=== PATIENT | male | born 1960 | race African-American/Black ===

== ENCOUNTER 2016-12-07 18:56 | Inpatient (IN) | payer MEDICARE, OTHER ==
[~2016-12-07] VITALS: Ht 180.3 cm; Wt 101.2 kg
[~2016-12-07 18:56] MED LIST: CIPROFLOXACIN500 M2 ORAL; IBUPROFEN600 MG ORAL; METRONIDAZOLE500 MG ORAL; RISPERDAL2 MG ORAL; WELLBUTRIN XL150 M1 ORAL
[2016-12-07 19:30] VITALS: BP 122/78
[2016-12-07] MEDS ORDERED: Aspirin Baby 81mg ORAL ONE (19:45)
[2016-12-07 20:42] LABS: BASOPHILS % (AUTO) 1.5 % (0.0-2.0); EOSINOPHILS % (AUTO) 1.5 % (0.0-3.0); LYMPHOCYTES % (AUTO) 32.6 % (20.0-45.0); MEAN CORPUSCULAR HEMOGLOBIN 29.3 PG (27.0-31.0); MEAN CORPUSCULAR HGB CONC 30.6 G/DL (32.0-36.0); MEAN CORPUSCULAR VOLUME 96 FL (80-99); MEAN PLATELET VOLUME 8.7 FL (6.5-10.1); MONOCYTES % (AUTO) 7.5 % (1.0-10.0); NEUTROPHILS % (AUTO) 56.9 % (45.0-75.0); PLATELET COUNT 136 K/UL (150-450); RED BLOOD COUNT 4.14 M/UL (4.70-6.10); RED CELL DISTRIBUTION WIDTH 17.2 % (11.6-14.8); WHITE BLOOD COUNT 7.4 K/UL (4.8-10.8)
[2016-12-07 20:49] LABS: INR 0.9 (0.9-1.1); PROTHROMBIN TIME 9.9 SEC (9.30-11.50)
[2016-12-07 20:52] LABS: ALANINE AMINOTRANSFERASE 75 U/L (12-78); ALBUMIN/GLOBULIN RATIO 0.8 (1.0-2.7); ANION GAP 14 mmol/L (5-15); ASPARTATE AMINO TRANSFERASE 131 U/L (15-37); CALCIUM 9.1 MG/DL (8.5-10.1); CARBON DIOXIDE 21 MMOL/L (21-32); CHLORIDE 106 MMOL/L (98-107); CKMB 1.9 NG/ML (0.0-3.6); CREATININE 1.1 MG/DL (0.55-1.30); GLOMERULAR FILTRATION RATE > 60 mL/min (>60); POTASSIUM 3.9 MMOL/L (3.5-5.1); SODIUM 140 MMOL/L (136-145); THYROID STIMULATING HORMONE 0.575 uiU/mL (0.360-3.740); TOTAL PROTEIN 7.5 G/DL (6.4-8.2)
[2016-12-07 21:49] LABS: APPEARANCE,URINE CLEAR; KETONES,URINE NEGATIVE (NEGATIVE); LEUKOCYTE ESTERASE ,URINE NEGATIVE (NEGATIVE); NITRITE,URINE NEGATIVE (NEGATIVE); PH,URINE 5 (4.5-8.0); PROTEIN,URINE NEGATIVE (NEGATIVE); UROBILINOGEN,URINE NORMAL MG/DL (0.0-1.0)
[2016-12-07 22:22] VITALS: BP 124/71
--- NOTE | 2016-12-07 23:01 | Emergency Room Report ---
History of Present Illness General Chief Complaint: Chest Pain Source: EMS Present Illness HPI This patient is brought in by EMS from the street. EMS responded to a call for chest pain and shortness of breath. He was found to be an SVT. He converted with adenosine. He arrives in normal sinus rhythm. He is intoxicated. He does arouse to sternal rub but that he gets very angry and belligerent and doesn 't want to be bothered. He mostly wants to sleep. Allergies: Coded Allergies: No Known Allergies (Unverified , 09/17/14) Patient History Past Medical History: see triage record, DM, HTN, CAD, other - SVT Past Surgical History: other - knee surgery Social History: Reports: alcohol use Reviewed Nursing Documentation: PMH: Agreed, PSxH: Agreed Nursing Documentation-PMH Hx Cardiac Problems: Yes - SVT Hx Hypertension: No Hx Diabetes: Yes Hx Neurological Problems: No - Lt knee surgery in 1989 Review of Systems All Other Systems: negative except mentioned in HPI Physical Exam Vital Signs Date Time Temp Pulse Resp B/P (MAP) Pulse Ox O2 Delivery O2 Flow Rate FiO2 12/07/ 18:54 99.1 98 16 122/78 99 Room Air Sp02 EP Interpretation: reviewed, normal General Appearance: no apparent distress, GCS 15, non-toxic, Stupor - but arousable to sternal rub Head: normocephalic, atraumatic Eyes: bilateral eye normal inspection, bilateral eye PERRL ENT: hearing grossly normal, normal pharynx, no angioedema, normal voice Neck: full range of motion, supple/symm/no masses Respiratory: chest non-tender, lungs clear, normal breath sounds, speaking full sentences Cardiovascular #1: regular rate, rhythm, no edema Gastrointestinal: normal bowel sounds, non tender, soft, non-distended, no guarding, no rebound Rectal: deferred Musculoskeletal: back normal, normal range of motion, non-tender Neurologic: responsive, motor strength/tone normal, other - non-focal. intoxicated. Skin: normal color, no rash, warm/dry, well hydrated Medical Decision Making Diagnostic Impression: Primary Impression: Chest pain Additional Impressions: SVT (supraventricular tachycardia) Alcohol intoxication ER Course This patient presents with overall intoxication and chest pain. He initially was found in SVT according to EMS. He arrives already converted and in sinus rhythm. The patient is intoxicated and belligerent. He is nonfocal on neurologic exam however. Laboratory workup is noncontributory. EKG shows nonspecific ST segment findings. This patient will be admitted to telemetry for further her deck monitoring and evaluation. Laboratory Tests Test 12/07/16 19:55 12/07/16 21:23 White Blood Count 7.4 K/UL (4.8-10.8) Red Blood Count 4.14 M/UL (4.70-6.10) L Hemoglobin 12.1 G/DL (14.2-18.0) L Hematocrit 39.6 % (42.0-52.0) L Mean Corpuscular Volume 96 FL (80-99) Mean Corpuscular Hemoglobin 29.3 PG (27.0-31.0) Mean Corpuscular Hemoglobin Concent 30.6 G/DL (32.0-36.0) L Red Cell Distribution Width 17.2 % (11.6-14.8) H Platelet Count 136 K/UL (150-450) L Mean Platelet Volume 8.7 FL (6.5-10.1) Neutrophils (%) (Auto) 56.9 % (45.0-75.0) Lymphocytes (%) (Auto) 32.6 % (20.0-45.0) Monocytes (%) (Auto) 7.5 % (1.0-10.0) Eosinophils (%) (Auto) 1.5 % (0.0-3.0) Basophils (%) (Auto) 1.5 % (0.0-2.0) Prothrombin Time 9.9 SEC (9.30-11.50) Prothrombin Time INR 0.9 (0.9-1.1) PTT 25 SEC (23-33) Sodium Level 140 MMOL/L (136-145) Potassium Level 3.9 MMOL/L (3.5-5.1) Chloride Level 106 MMOL/L (98-107) Carbon Dioxide Level 21 MMOL/L (21-32) Anion Gap 14 mmol/L (5-15) Blood Urea Nitrogen 10 mg/dL (7-18) Creatinine 1.1 MG/DL (0.55-1.30) Estimate Glomerular Filtration Rate > 60 mL/min (>60) Glucose Level 97 MG/DL (74-106) Calcium Level 9.1 MG/DL (8.5-10.1) Total Bilirubin 0.5 MG/DL (0.2-1.0) Aspartate Amino Transferase (AST) 131 U/L (15-37) H Alanine Aminotransferase (ALT) 75 U/L (12-78) Alkaline Phosphatase 76 U/L (46-116) Total Creatine Kinase 285 U/L (26-308) Creatine Kinase MB 1.9 NG/ML (0.0-3.6) Creatine Kinase MB Relative Index 0.6 Troponin I 0.035 ng/mL (0.000-0.056) Total Protein 7.5 G/DL (6.4-8.2) Albumin 3.4 G/DL (3.4-5.0) Globulin 4.1 g/dL Albumin/Globulin Ratio 0.8 (1.0-2.7) L Thyroid Stimulating Hormone (TSH) 0.575 uiU/mL (0.360-3.740) Free Thyroxine 0.74 NG/DL (0.10-1.46) Free Triiodothyronine Pending Serum Alcohol 227 mg/dL Urine Color Pale yellow Urine Appearance Clear Urine pH 5 (4.5-8.0) Urine Specific [place] 1.020 (1.005-1.035) Urine Protein Negative (NEGATIVE) Urine Glucose (UA) Negative (NEGATIVE) Urine Ketones Negative (NEGATIVE) Urine Occult Blood Negative (NEGATIVE) Urine Nitrite Negative (NEGATIVE) Urine Bilirubin Negative (NEGATIVE) Urine Urobilinogen Normal MG/DL (0.0-1.0) Urine Leukocyte Esterase Negative (NEGATIVE) Urine Opiates Screen Negative (NEGATIVE) Urine Barbiturates Screen Negative (NEGATIVE) Phencyclidine (PCP) Screen Negative (NEGATIVE) Urine Amphetamines Screen Negative (NEGATIVE) Urine Benzodiazepines Screen Positive (NEGATIVE) H Urine Cocaine Screen Positive (NEGATIVE) H Urine Marijuana (THC) Screen Negative (NEGATIVE) EKG Diagnostic Results Rate: normal Rhythm: NSR ST Segments: other Other Impression NSST Rhythm Strip Diag. Results EP Interpretation: yes Rate: 90's Rhythm: NSR, no PVC's, no ectopy Chest X-Ray Diagnostic Results Chest X-Ray Diagnostic Results : Chest X-Ray Ordered: Yes # of Views/Limited/Complete: 1 View Indication: Chest Pain EP Interpretation: Yes Interpretation: no consolidation, no effusion, no pneumothorax, no acute cardiopulmonary disease Impression: No acute disease Electronically Signed by: Bertha Last Vital Signs Date Time Temp Pulse Resp B/P (MAP) Pulse Ox O2 Delivery O2 Flow Rate FiO2 12/07/16 22:22 99.1 78 11 124/71 96 Room Air Disposition: ADMITTED INPATIENT Condition: Stable Referrals: NOT CHOSEN JASWANT/,REFERRING (PCP) CHUNG NOGUEIRA D.O. Dec 07, 2016 23:01
[2016-12-07 23:22] VITALS: BP 123/73
[2016-12-07] MEDS ORDERED: UNOBMED (23:23)
[2016-12-07] MEDS ORDERED: Morphine Sulfate 2mg/ml Inj IVP PRN (23:30)
[2016-12-07] MEDS ORDERED: Mylanta II UD 30ml ORAL PRN (23:30)
[2016-12-07] MEDS ORDERED: Miralax 17gm pkt ORAL PRN (23:30)
[2016-12-07] MEDS ORDERED: chlordiazePOXIDE 25mg Cap ORAL PRN (23:30)
[2016-12-07] MEDS ORDERED: Thiamine HCl 100 MG, Folic Acid 1 MG, Magnesium Sulfate 2,000 MG, Multivitamin - 12 Inj... IV SCH ×5 (23:30)
[2016-12-07] MEDS ORDERED: dilTIAZem HCl 25mg/5ml Inj IV PRN (23:30)
[2016-12-07] MEDS ORDERED: Zolpidem 5mg tab ORAL PRN (23:30)
[2016-12-07] MEDS ORDERED: LORazepam Inj 2mg/ml 1ml IV PRN (23:30)
[2016-12-08] VITALS (8 sets, daily range): BP systolic 121–148; BP diastolic 62–94
[2016-12-08] MEDS ORDERED: Thiamine HCl 100 MG, Folic Acid 1 MG, Magnesium Sulfate 2,000 MG, Multivitamin - 12 Inj... IV SCH ×5 (09:00)
[2016-12-08] MEDS: Folic Acid 1 MG, Magnesium Sulfate 2,000 MG, Multivitamin - 12 Injection 10 ML in NS w/... IV SCH (10:11)
[2016-12-08] MEDS: Thiamine 100mg in D5W 55ml IVPB SCH (10:12)
[2016-12-08] MEDS: Heparin 5000 units/ml inj SUBQ SCH ×2 (10:24→20:10)
[2016-12-08 10:46] LABS: EOSINOPHILS % (AUTO) 1.9 % (0.0-3.0); LYMPHOCYTES % (AUTO) 20.4 % (20.0-45.0); MEAN CORPUSCULAR HEMOGLOBIN 29.9 PG (27.0-31.0); MEAN CORPUSCULAR HGB CONC 31.7 G/DL (32.0-36.0); MEAN CORPUSCULAR VOLUME 95 FL (80-99); MEAN PLATELET VOLUME 8.3 FL (6.5-10.1); MONOCYTES % (AUTO) 7.6 % (1.0-10.0); NEUTROPHILS % (AUTO) 69.2 % (45.0-75.0); PLATELET COUNT 146 K/UL (150-450); WHITE BLOOD COUNT 7.5 K/UL (4.8-10.8)
[2016-12-08 10:52] LABS: INR 0.9 (0.9-1.1); PROTHROMBIN TIME 9.7 SEC (9.30-11.50)
[2016-12-08 11:09] LABS: IRON 85 ug/dL (50-175)
[2016-12-08 11:11] LABS: ALANINE AMINOTRANSFERASE 72 U/L (12-78); ALBUMIN/GLOBULIN RATIO 0.8 (1.0-2.7); ANION GAP 10 mmol/L (5-15); ASPARTATE AMINO TRANSFERASE 79 U/L (15-37); CALCIUM 9.1 MG/DL (8.5-10.1); CARBON DIOXIDE 23 MMOL/L (21-32); CHLORIDE 106 MMOL/L (98-107); GLOMERULAR FILTRATION RATE > 60 mL/min (>60); POTASSIUM 4.1 MMOL/L (3.5-5.1); SODIUM 139 MMOL/L (136-145); TOTAL PROTEIN 7.4 G/DL (6.4-8.2)
[2016-12-08 11:32] LABS: ANISOCYTOSIS 1+; BAND NEUTROPHILS % (MANUAL) 0 % (0-8); BASOPHILS % (MANUAL) 0 % (0-2); EOSINOPHILS % (MANUAL) 2 % (0-3); HYPOCHROMASIA 1+; LYMPHOCYTES % (MANUAL) 17 % (20-45); NEUTROPHILS % (MANUAL) 77 % (45-75); PLATELET ESTIMATE DECREASED; PLATELET MORPHOLOGY NORMAL; TOTAL CELLS COUNTED 100
[2016-12-08 11:58] LABS: FOLIC ACID 9.8 NG/ML (3.1-17.5)
[2016-12-08 12:00] LABS: TOTAL IRON BINDING CAPACITY 190 ug/dL (250-450)
[2016-12-08 12:01] LABS: LACTATE DEHYDROGENASE 328 U/L (81-234)
[2016-12-08 12:05] LABS: ERYTHROCYTE SEDIMENTATION RATE 22 MM/HR (0-20)
[2016-12-08 12:20] LABS: RETICULOCYTE COUNT 1.7 % (0.0-2.0)
[2016-12-08 12:32] LABS: PATH BLOOD SMEAR/OMC SENT TO PATHOLOGIST
--- NOTE | 2016-12-08 12:43 | Diagnostic Imaging Report ---
Indication: Chest pain Comparison: None A single view chest radiograph was obtained. Findings: Cardiomediastinal appearance is within normal limits for age. Pulmonary vascularity is appropriate. The diaphragmatic contour is smooth and costophrenic angles are sharp. No pleural effusions are identified. The bones are unremarkable. Impression: No acute findings
--- NOTE | 2016-12-08 12:52 | History and Physical ---
History of Present Illness General Date patient seen: Dec 08, 2016 Reason for Hospitalization: Chest Pain Present Illness HPI 56 year old male with hx of DM, HTN, CAD brought in by EMS from the street for chest pain and shortness of breath. He was found to be an SVT. He converted with adenosine. He arrives in normal sinus rhythm. He was intoxicated. He is admitted to telemetry for acute episode of SVT and acute encephalopathy,. Allergies: Coded Allergies: No Known Allergies (Unverified , 09/17/14) Medication History Scheduled Bupropion HCl (Wellbutrin Xl), 150 MG ORAL DAILY, (Reported) Ciprofloxacin Hcl* (Ciprofloxacin Hcl*), 500 MG ORAL Q12H Metronidazole* (Flagyl*), 500 MG ORAL THREE TIMES A DAY Risperidone* (Risperdal*), 2 MG ORAL DAILY, (Reported) Scheduled PRN Ibuprofen* (Motrin*), 600 MG ORAL Q8H PRN for For Pain Ibuprofen* (Motrin*), 600 MG ORAL Q8H PRN for For Pain Miscellaneous Medications Unable to Obtain Medications (Unable To Obtain Meds), (Reported) Patient History Healthcare decision maker Resuscitation status Full Code Advanced Directive on File Past Medical/Surgical History Past Medical/Surgical History: (1) Diabetes mellitus (2) HTN (hypertension) (3) ETOH abuse Review of Systems All Other Systems: negative except mentioned in HPI Physical Exam General Appearance: WD/WN Lines, tubes and drains: peripheral HEENT: normocephalic, atraumatic Neck: non-tender, normal alignment Respiratory/Chest: chest wall non-tender, lungs clear Breasts: no masses Cardiovascular/Chest: normal peripheral pulses Abdomen: normal bowel sounds, soft Genitourinary/Rectal: normal genital exam Last 24 Hour Vital Signs Date Time Temp Pulse Resp B/P (MAP) Pulse Ox O2 Delivery O2 Flow Rate FiO2 12/08/16 11:48 97.5 68 18 134/62 97 Room Air 12/08/16 08:00 97.3 69 20 122/75 98 Room Air 12/08/16 08:00 104 12/08/16 04:00 76 12/08/16 04:00 97.0 82 20 130/85 97 Room Air 12/08/16 01:00 97.6 92 20 125/80 98 Room Air 12/08/16 00:20 99.1 68 11 121/75 97 Room Air 75 12/08/16 00:13 99.1 75 11 121/75 97 Room Air 12/08/16 00:00 98.1 68 23 148/94 98 12/07/16 23:22 99.1 79 11 123/73 96 Room Air 12/07/16 22:22 99.1 78 11 124/71 96 Room Air 12/07/16 19:30 90 16 Room Air 12/07/16 19:30 99.1 90 16 122/78 95 Room Air 12/07/16 18:54 99.1 98 16 122/78 99 Room Air Intake and Output 12/08/16 12/09/16 19:00 07:00 Intake Total 120 ml Balance 120 ml Intake Oral 120 ml Laboratory Tests Test 12/07/16 19:55 12/07/16 21:23 12/08/16 10:05 White Blood Count 7.4 K/UL (4.8-10.8) 7.5 K/UL (4.8-10.8) Red Blood Count 4.14 M/UL (4.70-6.10) L 4.20 M/UL (4.70-6.10) L Hemoglobin 12.1 G/DL (14.2-18.0) L 12.6 G/DL (14.2-18.0) L Hematocrit 39.6 % (42.0-52.0) L 39.7 % (42.0-52.0) L Mean Corpuscular Volume 96 FL (80-99) 95 FL (80-99) Mean Corpuscular Hemoglobin 29.3 PG (27.0-31.0) 29.9 PG (27.0-31.0) Mean Corpuscular Hemoglobin Concent 30.6 G/DL (32.0-36.0) L 31.7 G/DL (32.0-36.0) L Red Cell Distribution Width 17.2 % (11.6-14.8) H 17.0 % (11.6-14.8) H Platelet Count 136 K/UL (150-450) L 146 K/UL (150-450) L Mean Platelet Volume 8.7 FL (6.5-10.1) 8.3 FL (6.5-10.1) Neutrophils (%) (Auto) 56.9 % (45.0-75.0) 69.2 % (45.0-75.0) Lymphocytes (%) (Auto) 32.6 % (20.0-45.0) 20.4 % (20.0-45.0) Monocytes (%) (Auto) 7.5 % (1.0-10.0) 7.6 % (1.0-10.0) Eosinophils (%) (Auto) 1.5 % (0.0-3.0) 1.9 % (0.0-3.0) Basophils (%) (Auto) 1.5 % (0.0-2.0) 1.0 % (0.0-2.0) Prothrombin Time 9.9 SEC (9.30-11.50) 9.7 SEC (9.30-11.50) Prothromb Time International Ratio 0.9 (0.9-1.1) 0.9 (0.9-1.1) Activated Partial Thromboplast Time 25 SEC (23-33) 26 SEC (23-33) Sodium Level 140 MMOL/L (136-145) 139 MMOL/L (136-145) Potassium Level 3.9 MMOL/L (3.5-5.1) 4.1 MMOL/L (3.5-5.1) Chloride Level 106 MMOL/L (98-107) 106 MMOL/L (98-107) Carbon Dioxide Level 21 MMOL/L (21-32) 23 MMOL/L (21-32) Anion Gap 14 mmol/L (5-15) 10 mmol/L (5-15) Blood Urea Nitrogen 10 mg/dL (7-18) 10 mg/dL (7-18) Creatinine 1.1 MG/DL (0.55-1.30) 1.0 MG/DL (0.55-1.30) Estimat Glomerular Filtration Rate > 60 mL/min (>60) > 60 mL/min (>60) Glucose Level 97 MG/DL (74-106) 95 MG/DL (74-106) Calcium Level 9.1 MG/DL (8.5-10.1) 9.1 MG/DL (8.5-10.1) Total Bilirubin 0.5 MG/DL (0.2-1.0) 1.0 MG/DL (0.2-1.0) Aspartate Amino Transf (AST/SGOT) 131 U/L (15-37) H 79 U/L (15-37) H Alanine Aminotransferase (ALT/SGPT) 75 U/L (12-78) 72 U/L (12-78) Alkaline Phosphatase 76 U/L (46-116) 79 U/L (46-116) Total Creatine Kinase 285 U/L (26-308) Creatine Kinase MB 1.9 NG/ML (0.0-3.6) Creatine Kinase MB Relative Index 0.6 Troponin I 0.035 ng/mL (0.000-0.056) Total Protein 7.5 G/DL (6.4-8.2) 7.4 G/DL (6.4-8.2) Albumin 3.4 G/DL (3.4-5.0) 3.3 G/DL (3.4-5.0) L Globulin 4.1 g/dL 4.1 g/dL Albumin/Globulin Ratio 0.8 (1.0-2.7) L 0.8 (1.0-2.7) L Thyroid Stimulating Hormone (TSH) 0.575 uiU/mL (0.360-3.740) Free Thyroxine 0.74 NG/DL (0.10-1.46) Free Triiodothyronine Pending Serum Alcohol 227 mg/dL Urine Color Pale yellow Urine Appearance Clear Urine pH 5 (4.5-8.0) Urine Specific [place] 1.020 (1.005-1.035) Urine Protein Negative (NEGATIVE) Urine Glucose (UA) Negative (NEGATIVE) Urine Ketones Negative (NEGATIVE) Urine Occult Blood Negative (NEGATIVE) Urine Nitrite Negative (NEGATIVE) Urine Bilirubin Negative (NEGATIVE) Urine Urobilinogen Normal MG/DL (0.0-1.0) Urine Leukocyte Esterase Negative (NEGATIVE) Urine Opiates Screen Negative (NEGATIVE) Urine Barbiturates Screen Negative (NEGATIVE) Phencyclidine (PCP) Screen Negative (NEGATIVE) Urine Amphetamines Screen Negative (NEGATIVE) Urine Benzodiazepines Screen Positive (NEGATIVE) H Urine Cocaine Screen Positive (NEGATIVE) H Urine Marijuana (THC) Screen Negative (NEGATIVE) Differential Total Cells Counted 100 Neutrophils % (Manual) 77 % (45-75) H Lymphocytes % (Manual) 17 % (20-45) L Monocytes % (Manual) 4 % (1-10) Eosinophils % (Manual) 2 % (0-3) Basophils % (Manual) 0 % (0-2) Band Neutrophils 0 % (0-8) Platelet Estimate Decreased L Platelet Morphology Normal Hypochromasia 1+ Anisocytosis 1+ Erythrocyte Sedimentation Rate 22 MM/HR (0-20) H Reticulocyte Count 1.7 % (0.0-2.0) Iron Level 85 ug/dL (50-175) Total Iron Binding Capacity 190 ug/dL (250-450) L Percent Iron Saturation 45 % (15-50) Unsaturated Iron Binding 105 ug/dL (112-346) L Lactate Dehydrogenase 328 U/L (81-234) H Vitamin B12 Level 629 PG/ML (193-986) Folate 9.8 NG/ML (3.1-17.5) Height (Feet): 5 Height (Inches): 11.00 Weight (Pounds): 223 Medications Current Medications Medications (Trade) Dose Ordered Sig/Liliya Route PRN Reason Start Time Stop Time Status Last Admin Dose Admin Acetaminophen (Tylenol) 650 mg Q4H PRN ORAL fever 12/07/16 23:30 01/06/17 23:29 Al Hydroxide/Mg Hydroxide (Mylanta II) 30 ml Q6H PRN ORAL dyspepsia 12/07/16 23:30 01/06/17 23:29 Chlordiazepoxide (Librium) 25 mg Q6H PRN ORAL Agitation 12/07/16 23:30 12/14/16 23:29 Dextrose (Dextrose 50%) STAT PRN IV Hypoglycemia 12/07/16 23:30 01/06/17 23:29 Diltiazem HCl (Cardizem) 10 mg EVERY HOUR PRN IV heart rate more than 120, 12/07/16 23:30 01/06/17 23:29 Folic Acid 1 mg/ Magnesium Sulfate 2000 mg/ Multivitamins 10 ml/Sodium Chloride 1,014.2 ml @ 125 mls/ hr Q24H IV 12/08/16 08:00 01/07/17 07:59 12/08/16 10:11 Heparin Sodium (Porcine) (Heparin 5000 units/ml) 5,000 units EVERY 12 HOURS SUBQ 12/08/16 09:00 01/07/17 08:59 12/08/16 10:24 Lorazepam (Ativan 2mg/ml 1ml) 2 mg EVERY HOUR PRN IV seizures 12/07/16 23:30 12/14/16 23:29 Morphine Sulfate (Morphine Sulfate) 1 mg EVERY 4 HOURS PRN IVP For Pain 12/07/16 23:30 12/14/16 23:29 Ondansetron HCl (Zofran) 4 mg Q6H PRN IVP Nausea & Vomiting 12/07/16 23:30 01/06/17 23:29 Polyethylene Glycol (Miralax) 17 gm HSPRN PRN ORAL Constipation 12/07/16 23:30 01/06/17 23:29 Thiamine HCl 100 mg/Dextrose 56 ml @ 112 mls/hr Q24H IVPB 12/08/16 08:00 01/07/17 07:59 12/08/16 10:12 Zolpidem Tartrate (Ambien) 5 mg HSPRN PRN ORAL Insomnia 12/07/16 23:30 12/14/16 23:29 Assessment/Plan Problem List: (1) SVT (supraventricular tachycardia) ICD Codes: I47.1 - Supraventricular tachycardia SNOMED: 0492698 (2) Chest pain ICD Codes: R07.9 - Chest pain, unspecified SNOMED: 42848360 (3) Delirium ICD Codes: R41.0 - Disorientation, unspecified SNOMED: 0608725 (4) Diabetes mellitus ICD Codes: E11.9 - Type 2 diabetes mellitus without complications SNOMED: 45231119 (5) HTN (hypertension) ICD Codes: I10 - Essential (primary) hypertension SNOMED: 54201651 (6) ETOH abuse ICD Codes: F10.10 - Alcohol abuse, uncomplicated SNOMED: 52884889 Assessment/Plan librium ativan prn Banan bag cardio to see telemetry BHASKAR ALONZO Dec 08, 2016 12:52
[2016-12-08] MEDS: LORazepam Inj 2mg/ml 1ml IV PRN ×2 (13:04→20:11)
[2016-12-08] MEDS: chlordiazePOXIDE 25mg Cap ORAL SCH ×2 (13:15→17:17)
--- NOTE | 2016-12-08 15:09 | Neurology Progress Note ---
Objective Physical Exam Last Vital Signs Date Time Temp Pulse Resp B/P (MAP) Pulse Ox O2 Delivery O2 Flow Rate FiO2 12/08/16 11:48 97.5 68 18 134/62 97 Room Air Laboratory Tests Test 12/07/16 19:55 12/07/16 21:23 12/08/16 10:05 White Blood Count 7.4 K/UL (4.8-10.8) 7.5 K/UL (4.8-10.8) Red Blood Count 4.14 M/UL (4.70-6.10) L 4.20 M/UL (4.70-6.10) L Hemoglobin 12.1 G/DL (14.2-18.0) L 12.6 G/DL (14.2-18.0) L Hematocrit 39.6 % (42.0-52.0) L 39.7 % (42.0-52.0) L Mean Corpuscular Volume 96 FL (80-99) 95 FL (80-99) Mean Corpuscular Hemoglobin 29.3 PG (27.0-31.0) 29.9 PG (27.0-31.0) Mean Corpuscular Hemoglobin Concent 30.6 G/DL (32.0-36.0) L 31.7 G/DL (32.0-36.0) L Red Cell Distribution Width 17.2 % (11.6-14.8) H 17.0 % (11.6-14.8) H Platelet Count 136 K/UL (150-450) L 146 K/UL (150-450) L Mean Platelet Volume 8.7 FL (6.5-10.1) 8.3 FL (6.5-10.1) Neutrophils (%) (Auto) 56.9 % (45.0-75.0) 69.2 % (45.0-75.0) Lymphocytes (%) (Auto) 32.6 % (20.0-45.0) 20.4 % (20.0-45.0) Monocytes (%) (Auto) 7.5 % (1.0-10.0) 7.6 % (1.0-10.0) Eosinophils (%) (Auto) 1.5 % (0.0-3.0) 1.9 % (0.0-3.0) Basophils (%) (Auto) 1.5 % (0.0-2.0) 1.0 % (0.0-2.0) Prothrombin Time 9.9 SEC (9.30-11.50) 9.7 SEC (9.30-11.50) Prothromb Time International Ratio 0.9 (0.9-1.1) 0.9 (0.9-1.1) Activated Partial Thromboplast Time 25 SEC (23-33) 26 SEC (23-33) Sodium Level 140 MMOL/L (136-145) 139 MMOL/L (136-145) Potassium Level 3.9 MMOL/L (3.5-5.1) 4.1 MMOL/L (3.5-5.1) Chloride Level 106 MMOL/L (98-107) 106 MMOL/L (98-107) Carbon Dioxide Level 21 MMOL/L (21-32) 23 MMOL/L (21-32) Anion Gap 14 mmol/L (5-15) 10 mmol/L (5-15) Blood Urea Nitrogen 10 mg/dL (7-18) 10 mg/dL (7-18) Creatinine 1.1 MG/DL (0.55-1.30) 1.0 MG/DL (0.55-1.30) Estimat Glomerular Filtration Rate > 60 mL/min (>60) > 60 mL/min (>60) Glucose Level 97 MG/DL (74-106) 95 MG/DL (74-106) Calcium Level 9.1 MG/DL (8.5-10.1) 9.1 MG/DL (8.5-10.1) Total Bilirubin 0.5 MG/DL (0.2-1.0) 1.0 MG/DL (0.2-1.0) Aspartate Amino Transf (AST/SGOT) 131 U/L (15-37) H 79 U/L (15-37) H Alanine Aminotransferase (ALT/SGPT) 75 U/L (12-78) 72 U/L (12-78) Alkaline Phosphatase 76 U/L (46-116) 79 U/L (46-116) Total Creatine Kinase 285 U/L (26-308) Creatine Kinase MB 1.9 NG/ML (0.0-3.6) Creatine Kinase MB Relative Index 0.6 Troponin I 0.035 ng/mL (0.000-0.056) Total Protein 7.5 G/DL (6.4-8.2) 7.4 G/DL (6.4-8.2) Albumin 3.4 G/DL (3.4-5.0) 3.3 G/DL (3.4-5.0) L Globulin 4.1 g/dL 4.1 g/dL Albumin/Globulin Ratio 0.8 (1.0-2.7) L 0.8 (1.0-2.7) L Thyroid Stimulating Hormone (TSH) 0.575 uiU/mL (0.360-3.740) Free Thyroxine 0.74 NG/DL (0.10-1.46) Free Triiodothyronine Pending Serum Alcohol 227 mg/dL Urine Color Pale yellow Urine Appearance Clear Urine pH 5 (4.5-8.0) Urine Specific [place] 1.020 (1.005-1.035) Urine Protein Negative (NEGATIVE) Urine Glucose (UA) Negative (NEGATIVE) Urine Ketones Negative (NEGATIVE) Urine Occult Blood Negative (NEGATIVE) Urine Nitrite Negative (NEGATIVE) Urine Bilirubin Negative (NEGATIVE) Urine Urobilinogen Normal MG/DL (0.0-1.0) Urine Leukocyte Esterase Negative (NEGATIVE) Urine Opiates Screen Negative (NEGATIVE) Urine Barbiturates Screen Negative (NEGATIVE) Phencyclidine (PCP) Screen Negative (NEGATIVE) Urine Amphetamines Screen Negative (NEGATIVE) Urine Benzodiazepines Screen Positive (NEGATIVE) H Urine Cocaine Screen Positive (NEGATIVE) H Urine Marijuana (THC) Screen Negative (NEGATIVE) Differential Total Cells Counted 100 Neutrophils % (Manual) 77 % (45-75) H Lymphocytes % (Manual) 17 % (20-45) L Monocytes % (Manual) 4 % (1-10) Eosinophils % (Manual) 2 % (0-3) Basophils % (Manual) 0 % (0-2) Band Neutrophils 0 % (0-8) Platelet Estimate Decreased L Platelet Morphology Normal Hypochromasia 1+ Anisocytosis 1+ Erythrocyte Sedimentation Rate 22 MM/HR (0-20) H Reticulocyte Count 1.7 % (0.0-2.0) Iron Level 85 ug/dL (50-175) Total Iron Binding Capacity 190 ug/dL (250-450) L Percent Iron Saturation 45 % (15-50) Unsaturated Iron Binding 105 ug/dL (112-346) L Lactate Dehydrogenase 328 U/L (81-234) H Vitamin B12 Level 629 PG/ML (193-986) Folate 9.8 NG/ML (3.1-17.5) Impression/Recommendations Recommendations # [id number] NUNU HAYES Dec 08, 2016 15:09
--- NOTE | 2016-12-08 16:16 | Cardiology Progress Note ---
Assessment/Plan Assessment/Plan svt chest wall pain recetn hospilization at [facility] left ama extensive neuro evl at [facility] 10/2016 [id number] Objective Last 24 Hour Vital Signs Date Time Temp Pulse Resp B/P (MAP) Pulse Ox O2 Delivery O2 Flow Rate FiO2 12/08/16 15:36 97.7 69 20 130/74 99 Room Air 12/08/16 12:00 76 12/08/16 11:48 97.5 68 18 134/62 97 Room Air 12/08/16 08:00 97.3 69 20 122/75 98 Room Air 12/08/16 08:00 104 12/08/16 04:00 76 12/08/16 04:00 97.0 82 20 130/85 97 Room Air 12/08/16 01:00 97.6 92 20 125/80 98 Room Air 12/08/16 00:20 99.1 68 11 121/75 97 Room Air 75 12/08/16 00:13 99.1 75 11 121/75 97 Room Air 12/08/16 00:00 98.1 68 23 148/94 98 12/07/16 23:22 99.1 79 11 123/73 96 Room Air 12/07/16 22:22 99.1 78 11 124/71 96 Room Air 12/07/16 19:30 90 16 Room Air 12/07/16 19:30 99.1 90 16 122/78 95 Room Air 12/07/16 18:54 99.1 98 16 122/78 99 Room Air Intake and Output 12/08/16 12/09/16 19:00 07:00 Intake Total 240 ml Balance 240 ml Intake Oral 240 ml Laboratory Tests Test 12/07/16 19:55 12/07/16 21:23 12/08/16 10:05 White Blood Count 7.4 K/UL (4.8-10.8) 7.5 K/UL (4.8-10.8) Red Blood Count 4.14 M/UL (4.70-6.10) L 4.20 M/UL (4.70-6.10) L Hemoglobin 12.1 G/DL (14.2-18.0) L 12.6 G/DL (14.2-18.0) L Hematocrit 39.6 % (42.0-52.0) L 39.7 % (42.0-52.0) L Mean Corpuscular Volume 96 FL (80-99) 95 FL (80-99) Mean Corpuscular Hemoglobin 29.3 PG (27.0-31.0) 29.9 PG (27.0-31.0) Mean Corpuscular Hemoglobin Concent 30.6 G/DL (32.0-36.0) L 31.7 G/DL (32.0-36.0) L Red Cell Distribution Width 17.2 % (11.6-14.8) H 17.0 % (11.6-14.8) H Platelet Count 136 K/UL (150-450) L 146 K/UL (150-450) L Mean Platelet Volume 8.7 FL (6.5-10.1) 8.3 FL (6.5-10.1) Neutrophils (%) (Auto) 56.9 % (45.0-75.0) 69.2 % (45.0-75.0) Lymphocytes (%) (Auto) 32.6 % (20.0-45.0) 20.4 % (20.0-45.0) Monocytes (%) (Auto) 7.5 % (1.0-10.0) 7.6 % (1.0-10.0) Eosinophils (%) (Auto) 1.5 % (0.0-3.0) 1.9 % (0.0-3.0) Basophils (%) (Auto) 1.5 % (0.0-2.0) 1.0 % (0.0-2.0) Prothrombin Time 9.9 SEC (9.30-11.50) 9.7 SEC (9.30-11.50) Prothromb Time International Ratio 0.9 (0.9-1.1) 0.9 (0.9-1.1) Activated Partial Thromboplast Time 25 SEC (23-33) 26 SEC (23-33) Sodium Level 140 MMOL/L (136-145) 139 MMOL/L (136-145) Potassium Level 3.9 MMOL/L (3.5-5.1) 4.1 MMOL/L (3.5-5.1) Chloride Level 106 MMOL/L (98-107) 106 MMOL/L (98-107) Carbon Dioxide Level 21 MMOL/L (21-32) 23 MMOL/L (21-32) Anion Gap 14 mmol/L (5-15) 10 mmol/L (5-15) Blood Urea Nitrogen 10 mg/dL (7-18) 10 mg/dL (7-18) Creatinine 1.1 MG/DL (0.55-1.30) 1.0 MG/DL (0.55-1.30) Estimat Glomerular Filtration Rate > 60 mL/min (>60) > 60 mL/min (>60) Glucose Level 97 MG/DL (74-106) 95 MG/DL (74-106) Calcium Level 9.1 MG/DL (8.5-10.1) 9.1 MG/DL (8.5-10.1) Total Bilirubin 0.5 MG/DL (0.2-1.0) 1.0 MG/DL (0.2-1.0) Aspartate Amino Transf (AST/SGOT) 131 U/L (15-37) H 79 U/L (15-37) H Alanine Aminotransferase (ALT/SGPT) 75 U/L (12-78) 72 U/L (12-78) Alkaline Phosphatase 76 U/L (46-116) 79 U/L (46-116) Total Creatine Kinase 285 U/L (26-308) Creatine Kinase MB 1.9 NG/ML (0.0-3.6) Creatine Kinase MB Relative Index 0.6 Troponin I 0.035 ng/mL (0.000-0.056) Total Protein 7.5 G/DL (6.4-8.2) 7.4 G/DL (6.4-8.2) Albumin 3.4 G/DL (3.4-5.0) 3.3 G/DL (3.4-5.0) L Globulin 4.1 g/dL 4.1 g/dL Albumin/Globulin Ratio 0.8 (1.0-2.7) L 0.8 (1.0-2.7) L Thyroid Stimulating Hormone (TSH) 0.575 uiU/mL (0.360-3.740) Free Thyroxine 0.74 NG/DL (0.10-1.46) Free Triiodothyronine Pending Serum Alcohol 227 mg/dL Urine Color Pale yellow Urine Appearance Clear Urine pH 5 (4.5-8.0) Urine Specific [place] 1.020 (1.005-1.035) Urine Protein Negative (NEGATIVE) Urine Glucose (UA) Negative (NEGATIVE) Urine Ketones Negative (NEGATIVE) Urine Occult Blood Negative (NEGATIVE) Urine Nitrite Negative (NEGATIVE) Urine Bilirubin Negative (NEGATIVE) Urine Urobilinogen Normal MG/DL (0.0-1.0) Urine Leukocyte Esterase Negative (NEGATIVE) Urine Opiates Screen Negative (NEGATIVE) Urine Barbiturates Screen Negative (NEGATIVE) Phencyclidine (PCP) Screen Negative (NEGATIVE) Urine Amphetamines Screen Negative (NEGATIVE) Urine Benzodiazepines Screen Positive (NEGATIVE) H Urine Cocaine Screen Positive (NEGATIVE) H Urine Marijuana (THC) Screen Negative (NEGATIVE) Differential Total Cells Counted 100 Neutrophils % (Manual) 77 % (45-75) H Lymphocytes % (Manual) 17 % (20-45) L Monocytes % (Manual) 4 % (1-10) Eosinophils % (Manual) 2 % (0-3) Basophils % (Manual) 0 % (0-2) Band Neutrophils 0 % (0-8) Platelet Estimate Decreased L Platelet Morphology Normal Hypochromasia 1+ Anisocytosis 1+ Erythrocyte Sedimentation Rate 22 MM/HR (0-20) H Reticulocyte Count 1.7 % (0.0-2.0) Iron Level 85 ug/dL (50-175) Total Iron Binding Capacity 190 ug/dL (250-450) L Percent Iron Saturation 45 % (15-50) Unsaturated Iron Binding 105 ug/dL (112-346) L Lactate Dehydrogenase 328 U/L (81-234) H Vitamin B12 Level 629 PG/ML (193-986) Folate 9.8 NG/ML (3.1-17.5) RICKY AGUIRRE Dec 08, 2016 16:16
[2016-12-08] MEDS: Metoprolol Tartrate 12.5mg TAB ORAL SCH ×2 (17:16→23:00)
[2016-12-08 18:17] LABS: PSA TOTAL 0.9 ng/mL (0.0-4.0)
--- NOTE | 2016-12-08 20:45 | Cardiology Report ---
APPROVED REPORT EXAM: Two-dimensional and M-mode echocardiogram with Doppler and color Doppler. INDICATION Left ventricular function M-Mode DIMENSIONS IVSd0.7 (0.7-1.1cm)Left Atrium (MM)2.4 (1.6-4.0cm) LVDd4.9 (3.5-5.6cm)Aortic Root2.8 (2.0-3.7cm) PWd0.9 (0.7-1.1cm)Aortic Cusp Exc.2.0 (1.5-2.0cm) LVDs2.5 (2.5-4.0cm) PWs1.4 cm Technically difficult study due to poor acoustical windows. Normal left ventricular chamber size, systolic function and wall motion. Left ventricular ejection fraction estimated to be 65-70%. No evidence of left ventricular hypertrophy. No evidence of pericardial or pleural effusion. All other cardiac chamber sizes are within normal limits. Focal aortic valve sclerosis with adequate cusp excursion. Thickened mitral valve leaflets with normal excursion. Normal mitral annulus and aortic. Pulmonic valve not well visualized. Normal tricuspid valve structure. IVC is not obtainable. A color flow and spectral Doppler study was performed and revealed: No aortic regurgitation. No mitral regurgitation. Mitral diastolic velocities suggest reduced left ventricular relaxation c/w diastolic dysfunction grade 1. No tricuspid regurgitation.
--- NOTE | 2016-12-08 22:45 | Consultation ---
DATE OF CONSULTATION: 12/08/2016 NEUROLOGICAL CONSULTATION CONSULTING PHYSICIAN: Jordan Brewer M.D. REQUESTING PHYSICIAN: Erika Chu M.D. HISTORY OF PRESENT ILLNESS: This is a 56-year-old man, seen in neurological consultation to evaluate new changes in mental status. According to the patient, he is a heavy drinker, drinks more than two fifths of hard liquors daily. He stopped and his last drink was yesterday after he started to develop chest pain and shortness of breath. Paramedics were called to the scene. He was found to be in supraventricular tachycardia. This apparently was converted with the use of adenosine. The patient was brought to the emergency room being quite intoxicated, angry, belligerent, and drowsy. His vital signs were stable except temperature 99.1. His chest x-ray, no acute findings. His laboratory work included CBC study with hemoglobin 12.1, hematocrit 39.2, and platelets 136,000. Coagulation panel was normal. Urinalysis was normal. Toxicology panel positive for benzos and cocaine, and serum alcohol of 227. His chemistry panel initially was normal with an elevated AST of 131, repeat study with LVH of 328, and albumin 3.3. Since admission till present, he continued to have chest pain and tremors. SOCIAL HISTORY: The patient recently become homeless. MEDICATIONS: Treatment at home included Wellbutrin 150 mg daily, Cipro, ibuprofen, Flagyl, and Risperdal 2 mg daily. ALLERGIES: None reported. REVIEW OF SYMPTOMS: Chest pain, depression, generalized weakness, and tremulousness. Now, the patient informs that he had previous alcohol withdrawal episodes some of them accompanied by seizure activities. He has a history of depression. PHYSICAL EXAMINATION: GENERAL: A well-developed, well-nourished man, found to be asleep, but easily arousable. VITAL SIGNS: Stable. He was afebrile. Blood pressure 134/62 and heart rate of 68. HEENT: Head, normocephalic. No evidence of injuries. Eyes, ears, and throat are clear. NECK: Supple. No meningeal signs. MUSCULOSKELETAL: Unremarkable. There is no deformities. Peripheral pulses 1+ and symmetric. MENTAL STATUS: The patient is now alert and oriented x3. Speech is fluent. No evidence of aphasia or apraxia. He is depressed indicating that he does not want to live like this. CRANIAL NERVE II: Pupils both responding to light and accommodation. Extraocular movements, full range. CRANIAL NERVE V: Normal corneal responses. CRANIAL NERVE VII: No facial asymmetry. CRANIAL NERVE VIII: Normal hearing. CRANIAL NERVES IX THROUGH XII: Tongue is in the midline. Symmetric palate elevation. MOTOR EXAMINATION: Revealed action tremor of both upper extremities. Strength is 5/5. Deep tendon reflexes 1+ and symmetric. Plantar response is mute. SENSORY EXAMINATION: Normal to pin stimulation. Gait not tested, but reported able to ambulate. IMPRESSION: 1. Alcohol abuse, delirium tremens. 2. History of withdrawal seizure activity. 3. Severe depression and suicidal ideation. 4. Abnormal liver enzymes. RECOMMENDATIONS: 1. The patient will start on alcohol withdrawal protocol. We will get IV banana bag. Ativan 2 mg q.4 hours p.r.n. breakthrough agitation, start on Valium 5 mg q.6 hours, and thiamine 200 mg b.i.d. x2 days. 2. Observe for any paroxysmal events. Recheck liver function, ammonia level, and PSA. 3. We will follow with you. Thank you for allowing me to see this interesting patient in neurological consultation. Jordan Brewer M.D. DR: ZULAY JOB#: [id number] CC:
[2016-12-09] MEDS: chlordiazePOXIDE 25mg Cap ORAL SCH ×2 (00:10→06:19)
--- NOTE | 2016-12-09 00:15 | Consultation ---
DATE OF CONSULTATION: 12/08/2016 CARDIOLOGY CONSULTATION CONSULTING PHYSICIAN: Walt Mccauley M.D. REFERRING PHYSICIAN: Erika Chu M.D. ATTENDING PHYSICIAN: Erika Chu M.D. REASON FOR REFERRAL: Chest pain and supraventricular tachycardia. HISTORY OF PRESENT ILLNESS: This is a 56-year-old gentleman, who recently been hospitalized and discharged from [facility]. The patient presented to the hospital because of chest pains and palpitations. Apparently, he has had these palpitations on several occasions. He had been told to have a procedure performed but he has never got it, he states. Yesterday there was a recurrent episode. He got diaphoretic, sweaty, nauseated and vomited, eventually called the paramedics. SVT was documented by paramedics, treated en route to the emergency room. He has been complaining of chest pain that he describes as nail sensation left side of the chest, it constantly present for at least one month, does get worse when he lays down on the left side and/or moves his left arm. He has occasional shortness of breath waking him up at night and breathes and it goes away. He has occasional shortness of breath. He has occasional dizziness or lightheadedness . PAST MEDICAL HISTORY: Positive for diabetes and possibly high blood pressure. He has had [facility] records which I reviewed, chest wall pain and midsternal pain reproducible on palpation. Alcohol abuse. Gait impairment that was felt not be a true symptom. History of hypertension, homelessness, prediabetes, somatic distended gallbladder, elevated lactic acid. During last hospitalization from [facility] in January, the patient left against medical advice. Report the patient was malingering gait impairment according to those records. He was seen and evaluated by neurology. CT MRI without evidence of CVA. He did get a banana bag at [facility], but left on his own. He did have a CT angiogram of his chest and basically no evidence of aortic aneurysm, aortic dissection, small hiatal hernia, distended gallbladder, small abdominal wall hernia, diverticulosis without diverticulitis, normal appendix, metallic fragments in soft tissue and gluteal area. SOCIAL HISTORY: The patient does not smoke. Does drink alcoholic beverages as much as he can get his hands on and uses drugs any kind that he get his hands on so what he had indicated. REVIEW OF SYSTEMS: GASTROINTESTINAL: He has had nausea vomiting yesterday during the episode. GENITOURINARY: Denies. PULMONARY: Denies CONSTITUTIONAL: Denies. NEUROLOGICAL: As mentioned in the history of present illness. PHYSICAL EXAMINATION: GENERAL: Shows to be middle-aged gentleman, in no respiratory distress. HEENT: He kept his eyes closed but was talking throughout the entire interview. NECK: Supple. No jugular venous distention. LUNGS: Clear to auscultation and percussion. CARDIAC: Regular rate and rhythm. No heaves or thrills noted. Chest wall is tender to palpation and seems to reproduce the patient's chest pain. ABDOMEN: Soft and nontender. Positive bowel sounds. EXTREMITIES: No clubbing, cyanosis, nor is there any edema. NEUROLOGICAL: He is awake, alert, responsive, and in no respiratory distress. LABORATORY AND DIAGNOSTIC DATA: His white count is 7.5, hemoglobin 12.6, and platelet count of 146. Sodium is 139, potassium 4.1, chloride 106, bicarb 23, BUN of 10, creatinine 1.0, glucose of 95. Troponin is 0.035. TSH was 0.575. Free T4 of 0.74. LDH of 329. Vitamin B12 of 612. Folic acid 9.8. Coags, INR 0.9 and PTT of 26. Tox screen positive for benzos and cocaine. Alcohol of 227. His urinalysis was unremarkable. Telemetry data shows sinus rhythm. There is no significant ST-T on telemetry here. EKG shows normal sinus rhythm, normal QRS and axis, no ST-T wave abnormalities. EKG by paramedics indicate supraventricular tachycardia, rate of 166 that broke with treatment administered by the paramedics, not clear to me whether he actually received adenosine are not. Actually the emergency room physician indicates that the patient was actually given adenosine by the paramedics for which he did respond ASSESSMENT AND PLAN: 1. Chest wall syndrome. 2. Supraventricular tachycardia with history of the same. 3. Alcohol abuse history. 4. Drug abuse history. 5. History of hospitalization recently at [facility], leaving against medical advice. 6. Complaints of gait disorder, not confirmed objectively and leaving against medical advice. Dr. Chu, this patient was seen in cardiac consultation. Should have a set of cardiac enzymes today and I will start him on some metoprolol 12.5 mg twice daily for him to take on a regular basis to see if we can prevent these episodes of SVT from occurring. He indicates he has had some intermittently. He has apparently been offered ablation. I am assuming he has not gone through with those procedures. Nonetheless apparently he is followed somewhere although not on a regular basis. Hopefully the atenolol will help decrease the frequency of these episodes. He is already is aware of what he can do to break these episodes including cold water application on the face, those to be continued if needed. The patient has had extensive neurological evaluation at [facility] and I see the patient has been evaluated by Dr. Brewer here as well. Walt Mccauley M.D. DR: Neema JOB#: [id number] CC:
[2016-12-09 00:21] VITALS: BP 114/73
[2016-12-09 04:00] VITALS: BP 118/69
[2016-12-09] MEDS: LORazepam Inj 2mg/ml 1ml IV PRN (06:26)
[2016-12-09 08:11] VITALS: BP 126/87
[2016-12-09 08:20] LABS: BASOPHILS % (AUTO) 0.7 % (0.0-2.0); EOSINOPHILS % (AUTO) 2.9 % (0.0-3.0); LYMPHOCYTES % (AUTO) 20.7 % (20.0-45.0); MEAN CORPUSCULAR HEMOGLOBIN 30.6 PG (27.0-31.0); MEAN CORPUSCULAR HGB CONC 32.2 G/DL (32.0-36.0); MEAN CORPUSCULAR VOLUME 95 FL (80-99); MEAN PLATELET VOLUME 10.1 FL (6.5-10.1); MONOCYTES % (AUTO) 7.8 % (1.0-10.0); NEUTROPHILS % (AUTO) 67.9 % (45.0-75.0); PLATELET COUNT 152 K/UL (150-450); RED CELL DISTRIBUTION WIDTH 17.5 % (11.6-14.8); WHITE BLOOD COUNT 7.1 K/UL (4.8-10.8)
[2016-12-09 08:51] LABS: ALANINE AMINOTRANSFERASE 60 U/L (12-78); ALBUMIN/GLOBULIN RATIO 0.7 (1.0-2.7); ANION GAP 8 mmol/L (5-15); ASPARTATE AMINO TRANSFERASE 52 U/L (15-37); CALCIUM 8.7 MG/DL (8.5-10.1); CARBON DIOXIDE 24 MMOL/L (21-32); CHLORIDE 107 MMOL/L (98-107); CREATININE 1.1 MG/DL (0.55-1.30); GLOMERULAR FILTRATION RATE > 60 mL/min (>60); PHOSPHORUS 3.4 MG/DL (2.5-4.9); POTASSIUM 3.8 MMOL/L (3.5-5.1); SODIUM 139 MMOL/L (136-145); TOTAL PROTEIN 7.1 G/DL (6.4-8.2)
[2016-12-09 08:53] LABS: CRP QUANT < 0.4 mg/dL (0.00-0.90)
[2016-12-09] MEDS: Thiamine 100mg in D5W 55ml IVPB SCH (09:53)
[2016-12-09] MEDS: Metoprolol Tartrate 12.5mg TAB ORAL SCH ×2 (09:54→20:57)
[2016-12-09] MEDS: Folic Acid 1 MG, Magnesium Sulfate 2,000 MG, Multivitamin - 12 Injection 10 ML in NS w/... IV SCH (09:54)
[2016-12-09] MEDS: Heparin 5000 units/ml inj SUBQ SCH ×2 (09:56→20:59)
[2016-12-09 09:58] LABS: ERYTHROCYTE SEDIMENTATION RATE 30 MM/HR (0-20)
[2016-12-09 12:03] VITALS: BP 140/86
--- NOTE | 2016-12-09 12:15 | Neurology Progress Note ---
Interim History Interim History ROS Limited/Unobtainable: No Complaints: visual hallucination Events: tremors insomnia Objective Physical Exam Last Vital Signs Date Time Temp Pulse Resp B/P (MAP) Pulse Ox O2 Delivery O2 Flow Rate FiO2 12/09/16 12:03 97.7 68 18 140/86 96 Room Air Laboratory Tests Test 12/08/16 17:00 12/08/16 19:05 12/09/16 07:20 Ammonia 34 umol/L (11.2-31.7) H Troponin I 0.015 ng/mL (0.000-0.056) Prostate Specific Antigen 0.9 ng/mL (0.0-4.0) Stool Occult Blood Negative (NEGATIVE) White Blood Count 7.1 K/UL (4.8-10.8) Red Blood Count 4.20 M/UL (4.70-6.10) L Hemoglobin 12.9 G/DL (14.2-18.0) L Hematocrit 39.9 % (42.0-52.0) L Mean Corpuscular Volume 95 FL (80-99) Mean Corpuscular Hemoglobin 30.6 PG (27.0-31.0) Mean Corpuscular Hemoglobin Concent 32.2 G/DL (32.0-36.0) Red Cell Distribution Width 17.5 % (11.6-14.8) H Platelet Count 152 K/UL (150-450) Mean Platelet Volume 10.1 FL (6.5-10.1) Neutrophils (%) (Auto) 67.9 % (45.0-75.0) Lymphocytes (%) (Auto) 20.7 % (20.0-45.0) Monocytes (%) (Auto) 7.8 % (1.0-10.0) Eosinophils (%) (Auto) 2.9 % (0.0-3.0) Basophils (%) (Auto) 0.7 % (0.0-2.0) Erythrocyte Sedimentation Rate 30 MM/HR (0-20) H Sodium Level 139 MMOL/L (136-145) Potassium Level 3.8 MMOL/L (3.5-5.1) Chloride Level 107 MMOL/L (98-107) Carbon Dioxide Level 24 MMOL/L (21-32) Anion Gap 8 mmol/L (5-15) Blood Urea Nitrogen 12 mg/dL (7-18) Creatinine 1.1 MG/DL (0.55-1.30) Estimat Glomerular Filtration Rate > 60 mL/min (>60) Glucose Level 104 MG/DL (74-106) Calcium Level 8.7 MG/DL (8.5-10.1) Phosphorus Level 3.4 MG/DL (2.5-4.9) Magnesium Level 2.0 MG/DL (1.8-2.4) Total Bilirubin 0.9 MG/DL (0.2-1.0) Aspartate Amino Transf (AST/SGOT) 52 U/L (15-37) H Alanine Aminotransferase (ALT/SGPT) 60 U/L (12-78) Alkaline Phosphatase 72 U/L (46-116) C-Reactive Protein, Quantitative < 0.4 mg/dL (0.00-0.90) Total Protein 7.1 G/DL (6.4-8.2) Albumin 3.0 G/DL (3.4-5.0) L Globulin 4.1 g/dL Albumin/Globulin Ratio 0.7 (1.0-2.7) L General: well developed, well nourished, other - ill appearing Head: normocophalic, atraumatic Neck: no rigidity Neurologic Exam Mental Status: other - drowsy arousable depressed Speech: normal speech, no dysarthia Language: normal language, no aphasia Cranial Nerve II: no papilledema Cranial Nerves III, IV, : PERRLA, EOMI Cranial Nerve V: normal facial sensations Cranial Nerve VII: no facial asymmetry Cranial Nerve VIII: normal hearing Cranial Nerve IX: normal palate elevation Cranial Nerve X: no voice hoarseness Cranial Nerve XI: trapezii function normal Cranial Nerve XII: tongue midline Motor System: no muscle wasting, other - tremors Sensory: normal pinprick Coordination: other Deep Tendon Reflexes: 0 bicep (L), 0 bicep (R), 0 tricep (L), 0 tricep (R), 0 brachioradialis (L), 0 brachioradialis (R), 0 knee (L), 0 knee (R), 0 ankle (L) , 0 ankle (R) Reflexes: mute plantar (L), mute plantar (R) Impression/Recommendations Problems: (1) Substance abuse withdrawal (2) Delirium tremens (3) Diabetes mellitus (4) Alcohol intoxication (5) SVT (supraventricular tachycardia) Status: unchanged Recommendations # [id number] NUNU HAYES Dec 09, 2016 12:15
--- NOTE | 2016-12-09 14:35 | Pulmonology Progress Note ---
Assessment/Plan Problems: (1) Delirium tremens (2) SVT (supraventricular tachycardia) (3) Chest pain (4) Delirium (5) Diabetes mellitus (6) HTN (hypertension) (7) ETOH abuse Assessment/Plan valium prn cardio following donna beta blockers/ Subjective ROS Limited/Unobtainable: No Constitutional: Reports: no symptoms HEENT: Repors: no symptoms Allergies: Coded Allergies: No Known Allergies (Unverified , 09/17/14) Objective Last 24 Hour Vital Signs Date Time Temp Pulse Resp B/P (MAP) Pulse Ox O2 Delivery O2 Flow Rate FiO2 12/09/16 12:03 97.7 68 18 140/86 96 Room Air 12/09/16 12:00 93 12/09/16 09:54 82 126/87 12/09/16 08:11 97.2 82 20 126/87 96 Room Air 12/09/16 08:00 92 12/09/16 04:00 97.8 75 19 118/69 97 Room Air 12/09/16 04:00 67 12/09/16 00:21 97.9 77 20 114/73 97 Room Air 12/09/16 00:00 82 12/08/16 23:00 77 114/73 12/08/16 20:27 97.6 81 19 132/71 96 Room Air 12/08/16 20:00 76 12/08/16 17:16 93 130/74 12/08/16 16:00 93 12/08/16 15:36 97.7 69 20 130/74 99 Room Air Intake and Output 12/09/16 12/10/16 19:00 07:00 Intake Total 480 ml Output Total 650 ml Balance -170 ml Intake Oral 480 ml Output Urine Total 650 ml General Appearance: WD/WN HEENT: normocephalic, atraumatic Respiratory/Chest: chest wall non-tender, lungs clear Cardiovascular: normal peripheral pulses, normal rate Abdomen: normal bowel sounds, soft, non tender Genitourinary: normal external genitalia Extremities: no cyanosis Skin: no lesions 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 Laboratory Tests 12/08/16 17:00: Ammonia 34H, Troponin I 0.015, Prostate Specific Antigen 0.9 12/08/16 19:05: Stool Occult Blood Negative 12/09/16 07:20: White Blood Count 7.1, Red Blood Count 4.20L, Hemoglobin 12.9L, Hematocrit 39.9L , Mean Corpuscular Volume 95, Mean Corpuscular Hemoglobin 30.6, Mean Corpuscular Hemoglobin Concent 32.2, Red Cell Distribution Width 17.5H, Platelet Count 152, Mean Platelet Volume 10.1, Neutrophils (%) (Auto) 67.9, Lymphocytes (%) (Auto) 20.7, Monocytes (%) (Auto) 7.8, Eosinophils (%) (Auto) 2.9, Basophils (%) (Auto) 0.7, Erythrocyte Sedimentation Rate 30H, Sodium Level 139, Potassium Level 3.8, Chloride Level 107, Carbon Dioxide Level 24, Anion Gap 8, Blood Urea Nitrogen 12, Creatinine 1.1, Estimat Glomerular Filtration Rate > 60, Glucose Level 104, Calcium Level 8.7, Phosphorus Level 3.4, Magnesium Level 2.0, Total Bilirubin 0.9, Aspartate Amino Transf (AST/SGOT) 52H , Alanine Aminotransferase (ALT/SGPT) 60, Alkaline Phosphatase 72, C-Reactive Protein, Quantitative < 0.4, Total Protein 7.1, Albumin 3.0L, Globulin 4.1, Albumin/Globulin Ratio 0.7L Current Medications Medications (Trade) Dose Ordered Sig/Liliya Route PRN Reason Start Time Stop Time Status Last Admin Dose Admin Acetaminophen (Tylenol) 650 mg Q4H PRN ORAL fever 12/07/16 23:30 01/06/17 23:29 Al Hydroxide/Mg Hydroxide (Mylanta II) 30 ml Q6H PRN ORAL dyspepsia 12/07/16 23:30 01/06/17 23:29 Dextrose (Dextrose 50%) STAT PRN IV Hypoglycemia 12/07/16 23:30 01/06/17 23:29 Diazepam (Valium) 5 mg Q6HR ORAL 12/09/16 12:30 12/16/16 12:29 12/09/16 12:46 Diltiazem HCl (Cardizem) 10 mg EVERY HOUR PRN IV heart rate more than 120, 12/07/16 23:30 01/06/17 23:29 Folic Acid 1 mg/ Magnesium Sulfate 2000 mg/ Multivitamins 10 ml/Sodium Chloride 1,014.2 ml @ 125 mls/ hr Q24H IV 12/08/16 08:00 01/07/17 07:59 12/09/16 09:54 Heparin Sodium (Porcine) (Heparin 5000 units/ml) 5,000 units EVERY 12 HOURS SUBQ 12/08/16 09:00 01/07/17 08:59 12/09/16 09:56 Lorazepam (Ativan 2mg/ml 1ml) 1 mg Q1H PRN IV tremors 12/08/16 12:45 12/15/16 12:44 12/09/16 06:26 Metoprolol Tartrate (Lopressor) 12.5 mg Q12HR ORAL 12/08/16 17:00 01/07/17 16:59 12/09/16 09:54 Morphine Sulfate (Morphine Sulfate) 1 mg EVERY 4 HOURS PRN IVP For Pain 12/07/16 23:30 12/14/16 23:29 Ondansetron HCl (Zofran) 4 mg Q6H PRN IVP Nausea & Vomiting 12/07/16 23:30 01/06/17 23:29 Polyethylene Glycol (Miralax) 17 gm HSPRN PRN ORAL Constipation 12/07/16 23:30 01/06/17 23:29 Risperidone (RisperDAL) 0.25 mg Q6H ORAL 12/09/16 12:30 01/08/17 12:29 12/09/16 12:47 Thiamine HCl 100 mg/Dextrose 56 ml @ 112 mls/hr Q24H IVPB 12/08/16 08:00 01/07/17 07:59 12/09/16 09:53 Zolpidem Tartrate (Ambien) 5 mg HSPRN PRN ORAL Insomnia 12/07/16 23:30 12/14/16 23:29 BHASKAR ALONZO Dec 09, 2016 14:35
--- NOTE | 2016-12-09 15:49 | Cardiology Report ---
APPROVED REPORT EKG Measurement Heart [id number] ND [id number] Normal sinus rhythm Normal ECG
[2016-12-09 15:59] VITALS: BP 127/71
[2016-12-09 20:00] VITALS: BP 131/74
--- NOTE | 2016-12-09 23:33 | Consultation ---
History of Present Illness General Chief Complaint: Chest Pain Present Illness HPI 56-year-old man,he is a heavy drinker, drinks more than two fifths of hard liquors daily. He stopped and his last drink was yesterday after he started to develop chest pain and shortness of breath. Paramedics were called during the eval the pt was eating and was staring at TV he was confused and not engaged. he is endorsing anxiety Allergies: Coded Allergies: No Known Allergies (Unverified , 09/17/14) Medication History Scheduled Bupropion HCl (Wellbutrin Xl), 150 MG ORAL DAILY, (Reported) Ciprofloxacin Hcl* (Ciprofloxacin Hcl*), 500 MG ORAL Q12H Metronidazole* (Flagyl*), 500 MG ORAL THREE TIMES A DAY Risperidone* (Risperdal*), 2 MG ORAL DAILY, (Reported) Scheduled PRN Ibuprofen* (Motrin*), 600 MG ORAL Q8H PRN for For Pain Ibuprofen* (Motrin*), 600 MG ORAL Q8H PRN for For Pain Miscellaneous Medications Unable to Obtain Medications (Unable To Obtain Meds), (Reported) Patient History Limited by: medical condition History Provided By: Patient, Medical Record, PMD Healthcare decision maker Resuscitation status Full Code Advanced Directive on File Past Medical/Surgical History Past Medical/Surgical History: (1) Arthralgia (2) Foot pain, left (3) Diverticulitis (4) Diverticulitis (5) Alcohol intoxication (6) Chest pain (7) Diabetes mellitus (8) HTN (hypertension) (9) Delirium (10) SVT (supraventricular tachycardia) (11) Delirium tremens (12) Substance abuse withdrawal Review of Systems Constitutional: Reports: malaise, weakness Psychiatric: Reports: prior hx, anxiety, depressed feelings, emotional problems Physical Exam General Appearance: no apparent distress, alert, confused Neurologic: alert, disoriented, unresponsiveness, depressed affect Last 24 Hour Vital Signs Date Time Temp Pulse Resp B/P (MAP) Pulse Ox O2 Delivery O2 Flow Rate FiO2 12/09/16 20:57 75 131/74 12/09/16 20:00 72 12/09/16 20:00 98.0 84 20 131/74 96 Room Air 12/09/16 16:00 73 12/09/16 15:59 97.5 70 18 127/71 96 Room Air 12/09/16 12:03 97.7 68 18 140/86 96 Room Air 12/09/16 12:00 93 12/09/16 09:54 82 126/87 12/09/16 08:11 97.2 82 20 126/87 96 Room Air 12/09/16 08:00 92 12/09/16 04:00 97.8 75 19 118/69 97 Room Air 12/09/16 04:00 67 12/09/16 00:21 97.9 77 20 114/73 97 Room Air 12/09/16 00:00 82 Intake and Output 12/09/16 12/10/16 19:00 07:00 Intake Total 2296 ml 1014.2 ml Output Total 2576 ml Balance -280 ml 1014.2 ml Intake Oral 1196 ml IV Total 1014.2 ml Other 1100 ml Output Urine Total 2576 ml # Bowel Movements 2 Laboratory Tests Test 12/09/16 07:20 White Blood Count 7.1 K/UL (4.8-10.8) Red Blood Count 4.20 M/UL (4.70-6.10) L Hemoglobin 12.9 G/DL (14.2-18.0) L Hematocrit 39.9 % (42.0-52.0) L Mean Corpuscular Volume 95 FL (80-99) Mean Corpuscular Hemoglobin 30.6 PG (27.0-31.0) Mean Corpuscular Hemoglobin Concent 32.2 G/DL (32.0-36.0) Red Cell Distribution Width 17.5 % (11.6-14.8) H Platelet Count 152 K/UL (150-450) Mean Platelet Volume 10.1 FL (6.5-10.1) Neutrophils (%) (Auto) 67.9 % (45.0-75.0) Lymphocytes (%) (Auto) 20.7 % (20.0-45.0) Monocytes (%) (Auto) 7.8 % (1.0-10.0) Eosinophils (%) (Auto) 2.9 % (0.0-3.0) Basophils (%) (Auto) 0.7 % (0.0-2.0) Erythrocyte Sedimentation Rate 30 MM/HR (0-20) H Sodium Level 139 MMOL/L (136-145) Potassium Level 3.8 MMOL/L (3.5-5.1) Chloride Level 107 MMOL/L (98-107) Carbon Dioxide Level 24 MMOL/L (21-32) Anion Gap 8 mmol/L (5-15) Blood Urea Nitrogen 12 mg/dL (7-18) Creatinine 1.1 MG/DL (0.55-1.30) Estimat Glomerular Filtration Rate > 60 mL/min (>60) Glucose Level 104 MG/DL (74-106) Calcium Level 8.7 MG/DL (8.5-10.1) Phosphorus Level 3.4 MG/DL (2.5-4.9) Magnesium Level 2.0 MG/DL (1.8-2.4) Total Bilirubin 0.9 MG/DL (0.2-1.0) Aspartate Amino Transf (AST/SGOT) 52 U/L (15-37) H Alanine Aminotransferase (ALT/SGPT) 60 U/L (12-78) Alkaline Phosphatase 72 U/L (46-116) C-Reactive Protein, Quantitative < 0.4 mg/dL (0.00-0.90) Total Protein 7.1 G/DL (6.4-8.2) Albumin 3.0 G/DL (3.4-5.0) L Globulin 4.1 g/dL Albumin/Globulin Ratio 0.7 (1.0-2.7) L Height (Feet): 5 Height (Inches): 11.00 Weight (Pounds): 223 Medications Current Medications Medications (Trade) Dose Ordered Sig/Liliya Route PRN Reason Start Time Stop Time Status Last Admin Dose Admin Acetaminophen (Tylenol) 650 mg Q4H PRN ORAL Mild Pain/Temp > 100.5 12/09/16 22:00 01/08/17 21:59 Al Hydroxide/Mg Hydroxide (Mylanta II) 30 ml Q6H PRN ORAL dyspepsia 12/07/16 23:30 01/06/17 23:29 Dextrose (Dextrose 50%) STAT PRN IV Hypoglycemia 12/07/16 23:30 01/06/17 23:29 Diazepam (Valium) 5 mg Q6HR ORAL 12/09/16 12:30 12/16/16 12:29 12/09/16 17:24 Diltiazem HCl (Cardizem) 10 mg EVERY HOUR PRN IV heart rate more than 120, 12/07/16 23:30 01/06/17 23:29 Folic Acid 1 mg/ Magnesium Sulfate 2000 mg/ Multivitamins 10 ml/Sodium Chloride 1,014.2 ml @ 125 mls/ hr Q24H IV 12/08/16 08:00 01/07/17 07:59 12/09/16 09:54 Heparin Sodium (Porcine) (Heparin 5000 units/ml) 5,000 units EVERY 12 HOURS SUBQ 12/08/16 09:00 01/07/17 08:59 12/09/16 20:59 Lorazepam (Ativan 2mg/ml 1ml) 1 mg Q1H PRN IV tremors 12/08/16 12:45 12/15/16 12:44 12/09/16 06:26 Metoprolol Tartrate (Lopressor) 12.5 mg Q12HR ORAL 12/08/16 17:00 01/07/17 16:59 12/09/16 20:57 Morphine Sulfate (Morphine Sulfate) 1 mg EVERY 4 HOURS PRN IVP For Pain 12/07/16 23:30 12/14/16 23:29 Ondansetron HCl (Zofran) 4 mg Q6H PRN IVP Nausea & Vomiting 12/07/16 23:30 01/06/17 23:29 Polyethylene Glycol (Miralax) 17 gm HSPRN PRN ORAL Constipation 12/07/16 23:30 01/06/17 23:29 Risperidone (RisperDAL) 0.25 mg Q6H ORAL 12/09/16 12:30 01/08/17 12:29 12/09/16 12:47 Thiamine HCl 100 mg/Dextrose 56 ml @ 112 mls/hr Q24H IVPB 12/08/16 08:00 01/07/17 07:59 12/09/16 09:53 Zolpidem Tartrate (Ambien) 5 mg HSPRN PRN ORAL Insomnia 12/07/16 23:30 12/14/16 23:29 Assessment/Plan Status: stable Assessment/Plan alcohol dependence alcohol w/d depression increase valium dc ativan start Paige Esteban M.D. Dec 09, 2016 23:33
[2016-12-10 00:37] VITALS: BP 124/76
[2016-12-10 04:27] VITALS: BP 128/75
[2016-12-10 08:10] LABS: BASOPHILS % (AUTO) 0.9 % (0.0-2.0); EOSINOPHILS % (AUTO) 4.5 % (0.0-3.0); LYMPHOCYTES % (AUTO) 23.5 % (20.0-45.0); MEAN CORPUSCULAR HEMOGLOBIN 30.7 PG (27.0-31.0); MEAN CORPUSCULAR HGB CONC 32.1 G/DL (32.0-36.0); MEAN CORPUSCULAR VOLUME 96 FL (80-99); MEAN PLATELET VOLUME 8.9 FL (6.5-10.1); MONOCYTES % (AUTO) 8.9 % (1.0-10.0); NEUTROPHILS % (AUTO) 62.2 % (45.0-75.0); PLATELET COUNT 153 K/UL (150-450); RED BLOOD COUNT 3.98 M/UL (4.70-6.10); RED CELL DISTRIBUTION WIDTH 17.4 % (11.6-14.8); WHITE BLOOD COUNT 6.5 K/UL (4.8-10.8)
[2016-12-10] MEDS: Folic Acid 1 MG, Magnesium Sulfate 2,000 MG, Multivitamin - 12 Injection 10 ML in NS w/... IV SCH (08:11)
[2016-12-10 08:19] VITALS: BP 124/78
[2016-12-10 08:30] LABS: ALANINE AMINOTRANSFERASE 50 U/L (12-78); ALBUMIN/GLOBULIN RATIO 0.8 (1.0-2.7); ANION GAP 8 mmol/L (5-15); ASPARTATE AMINO TRANSFERASE 43 U/L (15-37); CALCIUM 8.8 MG/DL (8.5-10.1); CARBON DIOXIDE 24 MMOL/L (21-32); CHLORIDE 108 MMOL/L (98-107); GLOMERULAR FILTRATION RATE > 60 mL/min (>60); MAGNESIUM 1.9 MG/DL (1.8-2.4); PHOSPHORUS 3.3 MG/DL (2.5-4.9); POTASSIUM 3.7 MMOL/L (3.5-5.1); SODIUM 140 MMOL/L (136-145); TOTAL PROTEIN 6.5 G/DL (6.4-8.2)
[2016-12-10] MEDS: Metoprolol Tartrate 12.5mg TAB ORAL SCH (08:30)
[2016-12-10] MEDS: Heparin 5000 units/ml inj SUBQ SCH (08:31)
[2016-12-10] MEDS ORDERED: Thiamine 100mg in D5W 55ml IVPB SCH (09:00)
[2016-12-10 11:24] VITALS: BP 129/86
[2016-12-10 11:53] LABS: OTHERS PATHOLOGIST COMMENT
--- NOTE | 2016-12-10 15:56 | Pulmonology Progress Note ---
Assessment/Plan Problems: (1) Delirium tremens (2) SVT (supraventricular tachycardia) (3) Chest pain (4) Delirium (5) Diabetes mellitus (6) HTN (hypertension) (7) ETOH abuse Assessment/Plan valium prn cardio following donna beta blockers/ improving adamant about leaving the hospital Subjective ROS Limited/Unobtainable: No Interval Events: feeling better Allergies: Coded Allergies: No Known Allergies (Unverified , 09/17/14) Objective Last 24 Hour Vital Signs Date Time Temp Pulse Resp B/P (MAP) Pulse Ox O2 Delivery O2 Flow Rate FiO2 12/10/16 12:00 67 12/10/16 11:24 97.4 80 20 129/86 98 Room Air 12/10/16 08:30 79 124/78 12/10/16 08:19 98.4 79 20 124/78 98 Room Air 12/10/16 08:00 84 12/10/16 04:27 98.0 55 20 128/75 97 Room Air 12/10/16 04:00 66 12/10/16 00:37 98.0 60 20 124/76 94 Room Air 12/10/16 00:00 68 12/09/16 20:57 75 131/74 12/09/16 20:00 72 12/09/16 20:00 98.0 84 20 131/74 96 Room Air 12/09/16 16:00 73 12/09/16 15:59 97.5 70 18 127/71 96 Room Air Intake and Output 12/10/16 12/11/16 19:00 07:00 Intake Total 681 ml Balance 681 ml IV Total 681 ml # Voids 1 # Bowel Movements 1 General Appearance: WD/WN HEENT: normocephalic, anicteric Respiratory/Chest: chest wall non-tender, normal breath sounds, chest wall tender Cardiovascular: normal peripheral pulses, normal rate Abdomen: normal bowel sounds, soft, non tender Genitourinary: normal external genitalia Extremities: no clubbing Skin: no rash Microbiology Date/Time Source Procedure Growth Status 12/08/16 00:45 Nasal Nares Left MRSA Culture - Final NO METHICILLIN RESISTANT STAPH AUREUS... Complete 12/08/16 00:45 Rectum VRE Culture - Final NO VANCOMYCIN RESISTANT ENTEROCOCCUS ... Complete Laboratory Tests 12/10/16 06:50: White Blood Count 6.5, Red Blood Count 3.98L, Hemoglobin 12.2L, Hematocrit 38.0L , Mean Corpuscular Volume 96, Mean Corpuscular Hemoglobin 30.7, Mean Corpuscular Hemoglobin Concent 32.1, Red Cell Distribution Width 17.4H, Platelet Count 153, Mean Platelet Volume 8.9, Neutrophils (%) (Auto) 62.2, Lymphocytes (%) (Auto) 23.5, Monocytes (%) (Auto) 8.9, Eosinophils (%) (Auto) 4.5H, Basophils (%) (Auto) 0.9, Sodium Level 140, Potassium Level 3.7, Chloride Level 108H, Carbon Dioxide Level 24, Anion Gap 8, Blood Urea Nitrogen 8, Creatinine 1.0, Estimat Glomerular Filtration Rate > 60, Glucose Level 98, Calcium Level 8.8, Phosphorus Level 3.3, Magnesium Level 1.9, Total Bilirubin 0.6, Aspartate Amino Transf (AST/SGOT) 43H, Alanine Aminotransferase (ALT/SGPT) 50, Alkaline Phosphatase 65, Total Protein 6.5, Albumin 2.8L, Globulin 3.7, Albumin/Globulin Ratio 0.8L BHASKAR ALONZO Dec 10, 2016 15:56
--- NOTE | 2016-12-10 21:05 | General Progress Note ---
Assessment/Plan Status: stable, progressing Subjective Constitutional: Reports: malaise, weakness Neurologic/Psychiatric: Reports: depressed, emotional problems Allergies: Coded Allergies: No Known Allergies (Unverified , 09/17/14) Objective Last 24 Hour Vital Signs Date Time Temp Pulse Resp B/P (MAP) Pulse Ox O2 Delivery O2 Flow Rate FiO2 12/10/16 12:00 67 12/10/16 11:24 97.4 80 20 129/86 98 Room Air 12/10/16 08:30 79 124/78 12/10/16 08:19 98.4 79 20 124/78 98 Room Air 12/10/16 08:00 84 12/10/16 04:27 98.0 55 20 128/75 97 Room Air 12/10/16 04:00 66 12/10/16 00:37 98.0 60 20 124/76 94 Room Air 12/10/16 00:00 68 12/09/16 20:57 75 131/74 Intake and Output 12/10/16 12/11/16 19:00 07:00 Intake Total 681 ml Balance 681 ml IV Total 681 ml # Voids 1 # Bowel Movements 1 Laboratory Tests 12/10/16 06:50: White Blood Count 6.5, Red Blood Count 3.98L, Hemoglobin 12.2L, Hematocrit 38.0L , Mean Corpuscular Volume 96, Mean Corpuscular Hemoglobin 30.7, Mean Corpuscular Hemoglobin Concent 32.1, Red Cell Distribution Width 17.4H, Platelet Count 153, Mean Platelet Volume 8.9, Neutrophils (%) (Auto) 62.2, Lymphocytes (%) (Auto) 23.5, Monocytes (%) (Auto) 8.9, Eosinophils (%) (Auto) 4.5H, Basophils (%) (Auto) 0.9, Sodium Level 140, Potassium Level 3.7, Chloride Level 108H, Carbon Dioxide Level 24, Anion Gap 8, Blood Urea Nitrogen 8, Creatinine 1.0, Estimat Glomerular Filtration Rate > 60, Glucose Level 98, Calcium Level 8.8, Phosphorus Level 3.3, Magnesium Level 1.9, Total Bilirubin 0.6, Aspartate Amino Transf (AST/SGOT) 43H, Alanine Aminotransferase (ALT/SGPT) 50, Alkaline Phosphatase 65, Total Protein 6.5, Albumin 2.8L, Globulin 3.7, Albumin/Globulin Ratio 0.8L Height (Feet): 5 Height (Inches): 11.00 Weight (Pounds): 223 General Appearance: no apparent distress, alert, confused, overweight Neurologic: alert, responsive, disoriented, depressed affect Paige Simpson M.D. Dec 10, 2016 21:05
--- NOTE | 2016-12-11 10:57 | Discharge Summary ---
Discharge Summary Hospital Course Date of Admission Dec 07, 2016 at 22:40 Date of Discharge Dec 10, 2016 at 14:00 Admitting Diagnosis CHEST PAIN/SUPER VENTRICULAR TACHYCARDIA HPI Gurdeep Schmidt is a 56 year old male who was admitted on Dec 07, 2016 at 22: 40 for Chest Pain/Super Vemtricular Tachycardia Hospital Course [id number] Discharge Discharge Disposition Patient left AMA Discharge Diagnoses: Angelina Downs NP Dec 11, 2016 10:57
--- NOTE | 2016-12-11 16:15 | Discharge Summary 2 SIG ---
DATE OF ADMISSION: 12/07/2016 DATE OF DISCHARGE: 12/10/2016 CONSULTANTS: 1. Paige Simpson M.D. 2. Walt Mccauley M.D. 3. Jordan Brewer M.D. BRIEF HOSPITAL COURSE: The patient is a 56-year-old male with history of diabetes mellitus, hypertension, and coronary artery disease, who was brought in by EMS. The patient was picked up from the street complaining of chest pain and shortness of breath. He was intoxicated. On the field, he was found to be in SVT where he was given adenosine. On arrival to ED, he converted to sinus rhythm. The patient was intoxicated and belligerent. There were nonfocal findings on neurologic exam. EKG showed nonspecific ST-segment findings. Blood work was unremarkable. Urine toxicology was positive for benzodiazepine and cocaine. Chest x-ray done showed no acute cardiopulmonary disease. No consolidation, effusion, or pneumothorax. He was admitted to telemetry and telemetry data showed sinus rhythm. Cardiac enzymes were monitored and was negative. He underwent neurologic evaluation. He was given alcohol withdrawal protocol with IV banana bag and Ativan p.r.n. He was given thiamine and Valium. He had an echocardiogram done that showed EF of 65% to 70%. He was eventually started on Prozac. Social service was called in. Full treatment was not carried out as the patient signed out against medical advice. FINAL DIAGNOSES: 1. Delirium tremens. 2. Chest pain due to supraventricular tachycardia, resolved. 3. Diabetes mellitus. 4. Hypertension. 5. Alcohol dependence with alcohol withdrawal symptoms. 6. Depression. 7. Substance abuse. 8. Noncompliance as the patient signed out against medical advice. DISPOSITION: The patient left AMA. Erika Chu M.D. I have been assigned to dictate discharge summary on this account and I was not involved in the patient's management. Vincenzo ArredondoP. DR: Shar JOB#: [id number] CC: JOSÉ
== END 2016-12-10 14:00 | disposition left against medical advice (07) | DRG 308 ==
LOC: EDBD 18:56 → EMR 22:37 → 2E 22:40 → EDBEDREQ 23:11 → 2E 12-08 00:28
DX: I47.1 Supraventricular tachycardia (principal); G93.40 Encephalopathy, unspecified; F10.231 Alcohol dependence with withdrawal delirium; I10 Essential (primary) hypertension; E11.9 Type 2 diabetes mellitus without complications; I25.10 Atherosclerotic heart disease of native coronary artery without angina pectoris; R07.89 Other chest pain; F32.9 Major depressive disorder, single episode, unspecified; Z91.19 Patient's noncompliance with other medical treatment and regimen; F14.10 Cocaine abuse, uncomplicated; F13.10 Sedative, hypnotic or anxiolytic abuse, uncomplicated; Z59.0 Homelessness
CPT/HCPCS: 36415; 71010; 80053; 80306; 80329; 81003; 82140; 82270; 82550; 82553; 82607; 82746; 83540; 83550; 83615; 83735; 84100; 84153; 84439; 84443; 84481; 84484; 85007; 85025; 85044; 85060; 85610; 85651; 85730; 86140; 87081; 93005; 93306; 99285

== ENCOUNTER 2016-12-29 21:28 | Emergency (ER) | payer MEDICARE, OTHER ==
[~2016-12-29] VITALS: Ht 182.9 cm; Wt 90.7 kg
[~2016-12-29 21:28] MED LIST changes: +UNOBMED
[2016-12-29 21:30] VITALS: BP 152/99
[2016-12-29 23:30] VITALS: BP 118/79
[2016-12-30 02:30] VITALS: BP 120/82
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
[2016-12-30 04:30] VITALS: BP 129/81
[2016-12-30 06:34] VITALS: BP 134/81
[2016-12-30 07:27] VITALS: BP 134/81
== END 2016-12-30 07:30 ==
LOC: EDBD 21:28 → EMR 22:00
DX: R41.82 Altered mental status, unspecified (principal); F10.120 Alcohol abuse with intoxication, uncomplicated; I10 Essential (primary) hypertension; E11.9 Type 2 diabetes mellitus without complications
CPT/HCPCS: 99283

== ENCOUNTER 2019-11-14 19:36 | Inpatient (IN) | payer MEDICARE, OTHER ==
[~2019-11-14] VITALS: Ht 185.4 cm; Wt 95.8 kg
[2019-11-14 19:45] VITALS: BP 134/72
[2019-11-14 20:06] LABS: BASOPHILS % (AUTO) 2.4 % (0.0-2.0); EOSINOPHILS % (AUTO) 3.2 % (0.0-3.0); HEMATOCRIT 40.2 % (42.0-52.0); HEMOGLOBIN 12.8 G/DL (14.2-18.0); LYMPHOCYTES % (AUTO) 32.6 % (20.0-45.0); MEAN CORPUSCULAR VOLUME 91 FL (80-99); MONOCYTES % (AUTO) 10.5 % (1.0-10.0); NEUTROPHILS % (AUTO) 51.3 % (45.0-75.0); PLATELET COUNT 122 K/UL (150-450); RED CELL DISTRIBUTION WIDTH 18.6 % (11.6-14.8); WHITE BLOOD COUNT 5.8 K/UL (4.8-10.8)
[2019-11-14 20:37] LABS: ALANINE AMINOTRANSFERASE 37 U/L (12-78); ALBUMIN 3.6 G/DL (3.4-5.0); ALBUMIN/GLOBULIN RATIO 1.2 (1.0-2.7); ALKALINE PHOSPHATASE 75 U/L (46-116); ASPARTATE AMINO TRANSFERASE 45 U/L (15-37); BLOOD UREA NITROGEN 16 mg/dL (7-18); CALCIUM 8.6 MG/DL (8.5-10.1); CARBON DIOXIDE 27 MMOL/L (21-32); CHLORIDE 104 MMOL/L (98-107); CREATININE 1.3 MG/DL (0.55-1.30); POTASSIUM 3.4 MMOL/L (3.5-5.1); SODIUM 140 MMOL/L (136-145)
[2019-11-14 21:45] VITALS: BP 137/66
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
[2019-11-14] MEDS ORDERED: Thiamine 100mg tab ORAL ONE (23:45)
[2019-11-15 00:45] VITALS: BP 134/78
[2019-11-15] MEDS ORDERED: Nitroglycerin Patch 0.1mg/hr TDERMAL SCH (02:00)
[2019-11-15] MEDS ORDERED: Morphine Sulfate 4mg/ml Inj (IV USE ONLY) IVP ONE (02:00)
[2019-11-15] MEDS ORDERED: Morphine Sulfate 2mg/ml Inj(IV/IM USE ONLY) IVP PRN (02:15)
[2019-11-15] MEDS ORDERED: Nitroglycerin 2% oint pkt TOPIC ONE (02:15)
[2019-11-15 03:30] VITALS: BP 134/62
[2019-11-15] MEDS ORDERED: Ciprofloxacin 500mg tab ORAL SCH (05:15)
[2019-11-15 08:00] VITALS: BP 131/74
[2019-11-15 08:41] LABS: BASOPHILS % (AUTO) 2.1 % (0.0-2.0); HEMATOCRIT 34.6 % (42.0-52.0); HEMOGLOBIN 11.2 G/DL (14.2-18.0); LYMPHOCYTES % (AUTO) 15.4 % (20.0-45.0); MEAN CORPUSCULAR VOLUME 88 FL (80-99); MONOCYTES % (AUTO) 6.9 % (1.0-10.0); NEUTROPHILS % (AUTO) 73.6 % (45.0-75.0); PLATELET COUNT 102 K/UL (150-450); RED BLOOD COUNT 3.93 M/UL (4.70-6.10); RED CELL DISTRIBUTION WIDTH 17.8 % (11.6-14.8); WHITE BLOOD COUNT 5.8 K/UL (4.8-10.8)
--- NOTE | 2019-11-15 08:54 | Consultation ---
History of Present Illness General Date patient seen: Nov 15, 2019 Time patient seen: 07:00 - am Chief Complaint: Chest Pain Referring physician: Nadia Reason for Consultation: Pain management Present Illness HPI This is a 59 y/o male being seen on the tele floor of [facility] for initial pain management consultation. Patient was admitted under the care of Dr. Zuniga due to chest pain to r/o ACS. Patient reports drinking a lot of beer and is having N/V. We were consulted to patient has adequate pain control while here in the hospital Allergies: Coded Allergies: No Known Allergies (Unverified , 09/17/14) Medication History Scheduled Bupropion HCl (Wellbutrin Xl), 150 MG ORAL DAILY, (Reported) Ciprofloxacin Hcl* (Ciprofloxacin Hcl*), 500 MG ORAL Q12H Metronidazole* (Flagyl*), 500 MG ORAL THREE TIMES A DAY Risperidone* (Risperdal*), 2 MG ORAL DAILY, (Reported) Scheduled PRN Ibuprofen (Motrin), 600 MG ORAL Q8H PRN for For Pain Ibuprofen (Motrin), 600 MG ORAL Q8H PRN for For Pain Miscellaneous Medications Unable to Obtain Medications (Unable To Obtain Meds), (Reported) Patient History Healthcare decision maker Resuscitation status Advanced Directive on File Past Medical/Surgical History Past Medical/Surgical History: (1) Arthralgia (2) Diverticulitis (3) Diverticulitis (4) Foot pain, left (5) Alcohol intoxication (6) HTN (hypertension) (7) CAD (coronary artery disease) Social History Social History: (1) ETOH abuse Review of Systems Constitutional: Reports: weakness Eye: Reports: no symptoms ENT: Reports: no symptoms Respiratory: Reports: no symptoms Cardiovascular: Reports: chest pain Gastrointestinal: Reports: nausea, vomiting Genitourinary: Reports: no symptoms Musculoskeletal: Reports: no symptoms Skin: Reports: no symptoms Psychiatric: Reports: no symptoms Neurological: Reports: no symptoms Endocrine: Reports: no symptoms Hematologic/Lymphatic: Reports: no symptoms Physical Exam General Appearance: alert HEENT: PERRL Neck: non-tender Respiratory/Chest: decreased breath sounds Cardiovascular/Chest: regularly irregular Abdomen: soft Extremities: non-tender Skin Exam: normal pigmentation Neurologic: alert, oriented x 3 Last 24 Hour Vital Signs Date Time Temp Pulse Resp B/P (MAP) Pulse Ox O2 Delivery O2 Flow Rate FiO2 11/15/19 04:57 Room Air 11/15/19 04:30 97.5 66 14 125/71 97 Room Air 11/15/19 03:30 97.8 63 14 134/62 98 Room Air 11/15/19 02:33 97.5 11/15/19 02:27 134/78 11/15/19 00:45 97.8 67 12 134/78 97 Room Air 11/14/19 21:45 98.8 89 16 137/66 96 Room Air 11/14/19 19:45 87 16 Room Air 11/14/19 19:45 98.8 87 16 134/72 98 Room Air 11/14/19 19:32 98.8 93 16 155/85 (108) 98 Room Air Intake and Output 11/14/19 11/15/19 19:00 07:00 Intake Total 1200 ml Balance 1200 ml Intake Oral 200 ml IV Total 1000 ml # Voids 2 # Bowel Movements 1 Laboratory Tests Test 11/14/19 19:15 11/14/19 20:11 11/14/19 23:45 11/15/19 08:25 White Blood Count 5.8 K/UL (4.8-10.8) 5.8 K/UL (4.8-10.8) Red Blood Count 4.40 M/UL (4.70-6.10) L 3.93 M/UL (4.70-6.10) L Hemoglobin 12.8 G/DL (14.2-18.0) L 11.2 G/DL (14.2-18.0) L Hematocrit 40.2 % (42.0-52.0) L 34.6 % (42.0-52.0) L Mean Corpuscular Volume 91 FL (80-99) 88 FL (80-99) Mean Corpuscular Hemoglobin 29.0 PG (27.0-31.0) 28.5 PG (27.0-31.0) Mean Corpuscular Hemoglobin Concent 31.7 G/DL (32.0-36.0) L 32.4 G/DL (32.0-36.0) Red Cell Distribution Width 18.6 % (11.6-14.8) H 17.8 % (11.6-14.8) H Platelet Count 122 K/UL (150-450) L 102 K/UL (150-450) L Mean Platelet Volume 7.7 FL (6.5-10.1) 6.8 FL (6.5-10.1) Neutrophils (%) (Auto) 51.3 % (45.0-75.0) 73.6 % (45.0-75.0) Lymphocytes (%) (Auto) 32.6 % (20.0-45.0) 15.4 % (20.0-45.0) L Monocytes (%) (Auto) 10.5 % (1.0-10.0) H 6.9 % (1.0-10.0) Eosinophils (%) (Auto) 3.2 % (0.0-3.0) H 2.0 % (0.0-3.0) Basophils (%) (Auto) 2.4 % (0.0-2.0) H 2.1 % (0.0-2.0) H Sodium Level 140 MMOL/L (136-145) Pending Potassium Level 3.4 MMOL/L (3.5-5.1) L Pending Chloride Level 104 MMOL/L (98-107) Pending Carbon Dioxide Level 27 MMOL/L (21-32) Pending Blood Urea Nitrogen 16 mg/dL (7-18) Pending Creatinine 1.3 MG/DL (0.55-1.30) Pending Estimat Glomerular Filtration Rate > 60 mL/min (>60) Pending Glucose Level 124 MG/DL (74-106) H Pending Calcium Level 8.6 MG/DL (8.5-10.1) Pending Total Bilirubin 1.0 MG/DL (0.2-1.0) Pending Aspartate Amino Transf (AST/SGOT) 45 U/L (15-37) H Pending Alanine Aminotransferase (ALT/SGPT) 37 U/L (12-78) Pending Alkaline Phosphatase 75 U/L (46-116) Pending Troponin I 0.013 ng/mL (0.000-0.056) 0.022 ng/mL (0.000-0.056) Pending Total Protein 6.6 G/DL (6.4-8.2) Pending Albumin 3.6 G/DL (3.4-5.0) Pending Globulin 3.0 g/dL Pending Albumin/Globulin Ratio 1.2 (1.0-2.7) Salicylates Level 0.4 ug/mL (2.8-20) L Acetaminophen Level < 2 MCG/ML (10-30) L Serum Alcohol 242 mg/dL Urine Opiates Screen Negative (NEGATIVE) Urine Barbiturates Screen Negative (NEGATIVE) Phencyclidine (PCP) Screen Negative (NEGATIVE) Urine Amphetamines Screen Negative (NEGATIVE) Urine Benzodiazepines Screen Negative (NEGATIVE) Urine Cocaine Screen Negative (NEGATIVE) Urine Marijuana (THC) Screen Negative (NEGATIVE) Microbiology Date/Time Source Procedure Growth Status 11/15/19 00:00 Nasopharynx SARS-CoV-2 RdRp Gene Assay - Final Complete Height (Feet): 6 Height (Inches): 1.00 Weight (Pounds): 209 Medications Current Medications Medications (Trade) Dose Ordered Sig/Liliya Route PRN Reason Start Time Stop Time Status Last Admin Dose Admin Acetaminophen (Tylenol) 650 mg Q4H PRN ORAL Mild Pain (Pain Scale 1-3) 11/15/19 05:00 12/15/19 04:59 Bupropion HCl (Wellbutrin XL) 150 mg DAILY ORAL 11/15/19 09:00 12/15/19 08:59 Ciprofloxacin (Cipro 500mg tab) 500 mg Q12H ORAL 11/15/19 05:15 11/22/19 05:14 UNV Ibuprofen (Motrin) 600 mg Q8H PRN ORAL For Pain 11/15/19 05:15 12/15/19 05:14 Metronidazole (Flagyl) 500 mg THREE TIMES A DAY ORAL 11/15/19 09:00 11/22/19 08:59 UNV Nitroglycerin (Ntg) 0.4 mg Q5M PRN SL Prn Chest Pain 11/15/19 08:30 12/15/19 08:29 Risperidone (RisperDAL) 2 mg DAILY ORAL 11/15/19 09:00 12/30/19 08:59 Assessment/Plan Assessment/Plan: (1) Chest pain (2) R/o ACS (3) Alcohol abuse and withdrawal Patient will be started on Morphine 1mg IV Q4H PRN severe pain and Ativan 0.5mg IV Q2H PRN for agitation and withdrawal symptoms. D/w Dr. Rivera and he concurred. Edwin Storey Nov 15, 2019 08:54
[2019-11-15] MEDS ORDERED: metroNIDAZOLE 500mg tab ORAL SCH (09:00)
[2019-11-15] MEDS ORDERED: LORazepam Inj 2mg/ml 1ml IV PRN (09:00)
[2019-11-15] MEDS: BuPROPion XL 150mg tab ORAL SCH (09:06)
[2019-11-15] MEDS: Nitroglycerin Subl 0.4mg tab SL PRN ×3 (09:09→09:45)
[2019-11-15 09:16] LABS: ALANINE AMINOTRANSFERASE 36 U/L (12-78); ALBUMIN 3.1 G/DL (3.4-5.0); ALKALINE PHOSPHATASE 61 U/L (46-116); ANION GAP 10 mmol/L (5-15); ASPARTATE AMINO TRANSFERASE 33 U/L (15-37); BILIRUBIN,TOTAL 1.6 MG/DL (0.2-1.0); BLOOD UREA NITROGEN 14 mg/dL (7-18); CALCIUM 8.3 MG/DL (8.5-10.1); CARBON DIOXIDE 26 MMOL/L (21-32); CHLORIDE 107 MMOL/L (98-107); CREATININE 0.9 MG/DL (0.55-1.30); POTASSIUM 3.6 MMOL/L (3.5-5.1); SODIUM 143 MMOL/L (136-145)
[2019-11-15 09:17] LABS: BILIRUBIN,DIRECT 0.3 MG/DL (0.0-0.3)
[2019-11-15] MEDS: Morphine Sulfate 2mg/ml Inj(IV/IM USE ONLY) IVP PRN ×2 (09:22→09:26)
--- NOTE | 2019-11-15 10:46 | Diagnostic Imaging Report ---
Procedure: XRAY Chest 1v Reason for study: Chest pain. Comparison films: 12/07/2016. FINDINGS: A single one view chest is obtained. Vascularity is normal. The lung monreal are clear bilaterally. Cardiac and mediastinal silhouette are within normal limits. CP angles are sharp. The bony thorax appear unremarkable. IMPRESSION: NO ACUTE CARDIOPULMONARY DISEASE.
[2019-11-15 12:00] VITALS: BP 146/68
--- NOTE | 2019-11-15 12:23 | Cardiac Electrophysiology PN ---
Subjective Subjective [facility] records and tom records from 2017 reviewed. Awaiting records from [facility] Alea MOY RN [id number] Objective Last 24 Hour Vital Signs Date Time Temp Pulse Resp B/P (MAP) Pulse Ox O2 Delivery O2 Flow Rate FiO2 11/15/19 09:45 150/70 11/15/19 09:39 138/72 11/15/19 09:09 139/77 11/15/19 04:57 Room Air 11/15/19 04:30 97.5 66 14 125/71 97 Room Air 11/15/19 03:30 97.8 63 14 134/62 98 Room Air 11/15/19 02:33 97.5 11/15/19 02:27 134/78 11/15/19 00:45 97.8 67 12 134/78 97 Room Air 11/14/19 21:45 98.8 89 16 137/66 96 Room Air 11/14/19 19:45 87 16 Room Air 11/14/19 19:45 98.8 87 16 134/72 98 Room Air 11/14/19 19:32 98.8 93 16 155/85 (108) 98 Room Air Intake and Output 11/14/19 11/15/19 19:00 07:00 Intake Total 1200 ml Balance 1200 ml Intake Oral 200 ml IV Total 1000 ml # Voids 2 # Bowel Movements 1 Laboratory Tests Test 11/14/19 19:15 11/14/19 20:11 11/14/19 23:45 11/15/19 08:25 White Blood Count 5.8 K/UL (4.8-10.8) 5.8 K/UL (4.8-10.8) Red Blood Count 4.40 M/UL (4.70-6.10) L 3.93 M/UL (4.70-6.10) L Hemoglobin 12.8 G/DL (14.2-18.0) L 11.2 G/DL (14.2-18.0) L Hematocrit 40.2 % (42.0-52.0) L 34.6 % (42.0-52.0) L Mean Corpuscular Volume 91 FL (80-99) 88 FL (80-99) Mean Corpuscular Hemoglobin 29.0 PG (27.0-31.0) 28.5 PG (27.0-31.0) Mean Corpuscular Hemoglobin Concent 31.7 G/DL (32.0-36.0) L 32.4 G/DL (32.0-36.0) Red Cell Distribution Width 18.6 % (11.6-14.8) H 17.8 % (11.6-14.8) H Platelet Count 122 K/UL (150-450) L 102 K/UL (150-450) L Mean Platelet Volume 7.7 FL (6.5-10.1) 6.8 FL (6.5-10.1) Neutrophils (%) (Auto) 51.3 % (45.0-75.0) 73.6 % (45.0-75.0) Lymphocytes (%) (Auto) 32.6 % (20.0-45.0) 15.4 % (20.0-45.0) L Monocytes (%) (Auto) 10.5 % (1.0-10.0) H 6.9 % (1.0-10.0) Eosinophils (%) (Auto) 3.2 % (0.0-3.0) H 2.0 % (0.0-3.0) Basophils (%) (Auto) 2.4 % (0.0-2.0) H 2.1 % (0.0-2.0) H Sodium Level 140 MMOL/L (136-145) 143 MMOL/L (136-145) Potassium Level 3.4 MMOL/L (3.5-5.1) L 3.6 MMOL/L (3.5-5.1) Chloride Level 104 MMOL/L (98-107) 107 MMOL/L (98-107) Carbon Dioxide Level 27 MMOL/L (21-32) 26 MMOL/L (21-32) Blood Urea Nitrogen 16 mg/dL (7-18) 14 mg/dL (7-18) Creatinine 1.3 MG/DL (0.55-1.30) 0.9 MG/DL (0.55-1.30) Estimat Glomerular Filtration Rate > 60 mL/min (>60) > 60 mL/min (>60) Glucose Level 124 MG/DL (74-106) H 97 MG/DL (74-106) Calcium Level 8.6 MG/DL (8.5-10.1) 8.3 MG/DL (8.5-10.1) L Total Bilirubin 1.0 MG/DL (0.2-1.0) 1.6 MG/DL (0.2-1.0) H Aspartate Amino Transf (AST/SGOT) 45 U/L (15-37) H 33 U/L (15-37) Alanine Aminotransferase (ALT/SGPT) 37 U/L (12-78) 36 U/L (12-78) Alkaline Phosphatase 75 U/L (46-116) 61 U/L (46-116) Troponin I 0.013 ng/mL (0.000-0.056) 0.022 ng/mL (0.000-0.056) 0.000 ng/mL (0.000-0.056) Total Protein 6.6 G/DL (6.4-8.2) 6.3 G/DL (6.4-8.2) L Albumin 3.6 G/DL (3.4-5.0) 3.1 G/DL (3.4-5.0) L Globulin 3.0 g/dL 3.2 g/dL Albumin/Globulin Ratio 1.2 (1.0-2.7) 1.0 (1.0-2.7) Salicylates Level 0.4 ug/mL (2.8-20) L Acetaminophen Level < 2 MCG/ML (10-30) L Serum Alcohol 242 mg/dL Urine Opiates Screen Negative (NEGATIVE) Urine Barbiturates Screen Negative (NEGATIVE) Phencyclidine (PCP) Screen Negative (NEGATIVE) Urine Amphetamines Screen Negative (NEGATIVE) Urine Benzodiazepines Screen Negative (NEGATIVE) Urine Cocaine Screen Negative (NEGATIVE) Urine Marijuana (THC) Screen Negative (NEGATIVE) Anion Gap 10 mmol/L (5-15) Direct Bilirubin 0.3 MG/DL (0.0-0.3) Microbiology Date/Time Source Procedure Growth Status 11/15/19 00:00 Nasopharynx SARS-CoV-2 RdRp Gene Assay - Final Complete Tom Singleton MD Nov 15, 2019 12:23
[2019-11-15] MEDS ORDERED: Lexiscan 0.4mg/5ml syringe IV PRN (12:31)
--- NOTE | 2019-11-15 15:30 | Consultation ---
DATE OF CONSULTATION: 11/15/2019 CARDIAC ELECTROPHYSIOLOGY CONSULTATION CONSULTING PHYSICIAN: Tom Singleton MD. REFERRING PHYSICIAN: Kvng Zuniga MD. REASON FOR CONSULTATION: Chest pain in the patient with coronary artery disease, prior stent as well as prior ablation for SVT. HISTORY OF PRESENT ILLNESS: The patient is a 59-year-old gentleman with history of alcohol abuse, obesity, and history of recurrent SVT since 2017, who reportedly underwent an ablation at [facility]. The patient also stated that he had cardiac catheterization and stent in his heart at [facility] a month ago and then again in July of 2019. The patient was brought to the emergency room by paramedics complaining of chest pain on the street. He was intoxicated on arrival, was not able to provide any information. The patient denies any drug use except for alcohol. The patient was admitted and a Cardiology consultation was obtained for further evaluation and management. EKG showed normal sinus rhythm, normal electrocardiogram. His first troponin was negative. REVIEW OF SYSTEMS: Negative other than what is mentioned in the history of present illness. PAST MEDICAL HISTORY: As mentioned above. FAMILY HISTORY: Noncontributory. SOCIAL HISTORY: He lives at home. He continue to drink alcohol and smokes. PHYSICAL EXAMINATION: VITAL SIGNS: Show blood pressure of 150/70, pulse 66, respirations 18, and temperature 97.5. HEAD AND NECK: Showed no JVD. LUNGS: Clear. CARDIOVASCULAR: Regular S1 and S2 with no gallop or murmur. ABDOMEN: Soft. EXTREMITIES: No pitting edema. LABORATORY DATA: Labs show white count of 5.8, hemoglobin 11.2, hematocrit 34.6, and platelet count of 102. Sodium 143, potassium 3.6, BUN of 14, creatinine 0.9, and glucose of 97. Troponin negative x3. ASSESSMENT AND PLAN: 1. Chest pain in a patient with history of coronary artery disease as well as history of stent at [facility]. The patient already ruled out for myocardial infarction. We will try to get those records from [facility] to see if he truly had a stent as the information is not very reliable. I reviewed his records at [facility], his last admission was in 2016 but there was no history of prior stent at that time. In the meantime, keep the patient on aspirin, low dose beta-yulia, and statin. The patient likely would need a stress test for further evaluation. 2. History of supraventricular tachycardia documented on the previous admission at [place]. The patient reportedly underwent an ablation at [facility]. Again, we will try to get those records as well. 3. History of heavy alcohol use on lorazepam, Risperdal, and Wellbutrin. It is of note patient's urine toxicology screen on this admission was negative; however in 2017 was positive for cocaine and benzodiazepine. The case was discussed with the nurse extensively and [facility] records were reviewed. Thank you very much for allowing me to participate in the care of this patient. Please do not hesitate to contact me for any questions regarding my evaluation, Sincerely, Tom Singleton M.D. DR: Gill JOB#: [id number] CC:
[2019-11-15 16:00] VITALS: BP 159/86
[2019-11-15 20:00] VITALS: BP 156/77
[2019-11-15] MEDS: Metoprolol Tartrate 50mg tab ORAL SCH (21:13)
--- NOTE | 2019-11-15 23:11 | Initial Psychiatric Evaluation ---
Psychiatry Consultation Psychiatry Consultation Chief Complaint: Chest Pain Allergies: Coded Allergies: No Known Allergies (Unverified , 09/17/14) Medication History Scheduled Aspirin* (Aspirin*), 81 MG ORAL DAILY, (Reported) Atorvastatin Calcium* (Lipitor*), 5 MG ORAL BEDTIME, (Reported) Atorvastatin Calcium* (Lipitor*), 10 MG ORAL BEDTIME, (Reported) Bupropion HCl (Wellbutrin Xl), 150 MG ORAL DAILY, (Reported) Bupropion Xl* (Bupropion Xl*), 150 MG ORAL Q24H, (Reported) Folic Acid* (Folic Acid*), 1 MG ORAL DAILY, (Reported) Metoprolol Tartrate* (Metoprolol Tartrate*), 50 MG ORAL EVERY 12 HOURS, (Reported) Risperidone* (Risperdal*), 2 MG ORAL BID, (Reported) Risperidone* (Risperdal*), 2 MG ORAL DAILY, (Reported) Scheduled PRN Acetaminophen* (Acetaminophen 325MG Tablet*), 650 MG ORAL Q4H PRN for Pain Scale (3-5), (Reported) Ibuprofen* (Motrin*), 600 MG ORAL Q8H PRN for FOR PAIN, (Reported) Lorazepam* (Ativan*), 2 MG ORAL Q4HR PRN for For Anxiety, (Reported) Nitroglycerin 0.4MG table* (Nitroglycerin*), 0.4 MG SL .Q5MIN X 3 DOSES PRN for CHEST PAIN, (Reported) Ondansetron* (Zofran*), 4 MG ORAL Q6H PRN for Nausea & Vomiting, (Reported) Pantoprazole* (Protonix*), 40 MG ORAL DAILY PRN for GERD, (Reported) Miscellaneous Medications Thiamine Mononitrate (Vitamin B-1), 100 MG PO, (Reported) Discontinued Medications Ciprofloxacin Hcl* (Ciprofloxacin Hcl*), 500 MG ORAL Q12H Discontinued Reason: Pt stopped taking med Ibuprofen (Motrin), 600 MG ORAL Q8H PRN for For Pain Discontinued Reason: Pt stopped taking med Metronidazole* (Flagyl*), 500 MG ORAL THREE TIMES A DAY Discontinued Reason: Pt stopped taking med Objective Data Height (Feet): 6 Height (Inches): 1.00 Weight (Pounds): 209 Additional Comments: psychotic disorder, diabetes, CAD, back pain, alcohol abuse, as well as hernia, who was admitted to the hospital for medical stabilization. The patient complained of chest pain. He denied any suicidal or homicidal ideation. He has anxiety. The patient was given benzodiazepine in the hospital. He is not endorsing any suicidal or homicidal ideation. PAST PSYCHIATRIC HISTORY: Anxiety and psychotic disorder. PAST MEDICAL HISTORY: As above. ALLERGIES: No known drug allergies. SUBSTANCE ABUSE HISTORY: Significant for alcohol abuse and drug use. MENTAL STATUS EXAMINATION: Alert and oriented to times self, place and situation. Mood is neutral. Affect is full range. Congruent mood. Thought process is linear and goal oriented. Thought content, no suicidal or homicidal ideation. ASSESSMENT: Carnation I Major depressive disorder. Psychotic disorder. Carnation II Deferred. Carnation III None. Carnation IV Low. Carnation V 50 PLAN: 1. Wellbutrin. 2. Lorazepam p.r.n. 3. Risperidone at bedtime. 4. The patient is not an imminent danger to self or others Paige Simpson MD Nov 15, 2019 23:11
[2019-11-15] MEDS ORDERED: LORazepam 1mg tab ORAL PRN (23:30)
[2019-11-16] VITALS: BP 158/86
--- NOTE | 2019-11-16 01:30 | History and Physical Report ---
DATE OF ADMISSION: 11/15/2019 HISTORY OF PRESENT ILLNESS: The patient is admitted for chest pain, rule out acute coronary syndrome. The patient also has some nausea and is a diabetic, has history of MD, has been having chest pain radiating to the left arm for the past 3 days. He is having chest pain that radiates to the left arm for the past 3 days. The patient also has chronic back pain. The patient also has history of alcohol abuse, was complaining of shortness of breath and vomiting and abdominal pain. Has a coronary stent. The patient's potassium was also low. The patient has been admitted to rule out acute coronary syndrome and also for shortness of breath, vomiting, and low potassium. PAST MEDICAL HISTORY: Significant for anxiety, psychosis, history of diabetes, history of CAD, low back pain, history of alcohol abuse, history of hernia, history of CAD. PAST SURGICAL HISTORY: Status post stent, left knee surgery, left foot surgery, deviated septum surgery, hernia surgery. FAMILY HISTORY: Diabetes, hypertension. ALLERGIES: No known allergies. SOCIAL HISTORY: Has a history of smoking. Has a history of drug abuse. Has a history of alcohol abuse. MEDICATIONS: Ibuprofen, risperidone, and BuSpar. REVIEW OF SYSTEMS: HEENT: Headaches. RESPIRATORY: Reports shortness of breath. Denies cough. CARDIOVASCULAR: Denies chest pain for a couple of days, radiating to the left arm. Denies orthopnea. GASTROINTESTINAL: Denies nausea. Does have vomiting. Denies constipation. Does have abdominal pain for a couple of days. EXTREMITIES: Does have back pain, which is chronic. CENTRAL NERVOUS SYSTEM: Denies change in speech pattern. Feels weak. PHYSICAL EXAMINATION: VITAL SIGNS: Temperature 97.7, pulse is 65, blood pressure is 146/68. HEENT: PERRLA. NECK: Supple. No lymphadenopathy. CHEST: Clear to auscultation. CARDIOVASCULAR: Regular rate and rhythm. No murmurs or extra sounds. GASTROINTESTINAL: Soft, nontender, nondistended. No organomegaly. EXTREMITIES: No edema. Moves all 4 extremities. NEUROLOGIC: Sensory intact to light touch. Reflexes on both sides. Has generalized weakness. EKG does not show any significant abnormalities. LABORATORY DATA: WBC of 5.8, hemoglobin 12.8, and platelets of 122. Sodium 140, potassium 3.4, BUN of 16, creatinine 1.3, glucose 124. Troponin 0.013. ASSESSMENT/PLAN: 1. Chest pain, rule out acute coronary syndrome, coronary artery disease. The patient is a high risk, has a coronary stent . 2. Vomiting. 3. 4. Abdominal pain. I have actually consulted Dr. Singleton, Dr. Parra, Dr. Simpson, Dr. Rivera, and Dr. Caldwell to help with the above-mentioned abnormalities and symptoms and lab values and rule out acute coronary syndrome. We will watch for DT and alcohol withdrawal seizures, for which Dr. Simpson has been consulted. For low potassium and hypertension, Dr. Parra has been consulted. Dr. Singleton to rule out acute coronary syndrome and Dr. Caldwell for the abdominal pain and vomiting and history of alcohol abuse. Kvng Zuniga M.D. DR: VEENA JOB#: [id number] CC:
[2019-11-16 04:00] VITALS: BP 149/85
[2019-11-16 07:31] LABS: HEMATOCRIT 35.3 % (42.0-52.0); HEMOGLOBIN 11.5 G/DL (14.2-18.0); MEAN CORPUSCULAR VOLUME 88 FL (80-99); PLATELET COUNT 96 K/UL (150-450); RED BLOOD COUNT 3.99 M/UL (4.70-6.10); WHITE BLOOD COUNT 6.6 K/UL (4.8-10.8)
[2019-11-16 08:00] VITALS: BP 143/76
[2019-11-16 08:11] LABS: ALANINE AMINOTRANSFERASE 41 U/L (12-78); ALBUMIN 2.9 G/DL (3.4-5.0); ALKALINE PHOSPHATASE 68 U/L (46-116); ANION GAP 9 mmol/L (5-15); ASPARTATE AMINO TRANSFERASE 47 U/L (15-37); BILIRUBIN,TOTAL 1.6 MG/DL (0.2-1.0); BLOOD UREA NITROGEN 10 mg/dL (7-18); CALCIUM 8.7 MG/DL (8.5-10.1); CARBON DIOXIDE 24 MMOL/L (21-32); CHLORIDE 104 MMOL/L (98-107); POTASSIUM 3.8 MMOL/L (3.5-5.1); SODIUM 137 MMOL/L (136-145)
[2019-11-16 08:16] LABS: BILIRUBIN,DIRECT 0.3 MG/DL (0.0-0.3)
[2019-11-16] MEDS: Metoprolol Tartrate 50mg tab ORAL SCH ×2 (09:00→21:09)
--- NOTE | 2019-11-16 09:01 | General Progress Note ---
Subjective Date patient seen: Nov 16, 2019 Time patient seen: 08:15 - am Constitutional: Reports: weakness HEENT: Reports: no symptoms Cardiovascular: Reports: no symptoms Respiratory: Reports: no symptoms Gastrointestinal/Abdominal: Reports: abdominal pain Genitourinary: Reports: no symptoms Neurologic/Psychiatric: Reports: weakness Endocrine: Reports: no symptoms Hematologic/Lymphatic: Reports: no symptoms Allergies: Coded Allergies: No Known Allergies (Unverified , 09/17/14) Subjective Patient is showing no signs of pain or distress. Having stress test today. Objective Last 24 Hour Vital Signs Date Time Temp Pulse Resp B/P (MAP) Pulse Ox O2 Delivery O2 Flow Rate FiO2 11/16/19 04:00 98.4 56 20 149/85 (106) 99 11/16/19 04:00 56 11/16/19 00:00 97.7 71 20 158/86 (110) 97 11/16/19 00:00 60 11/15/19 21:13 93 156/77 11/15/19 21:00 Room Air 11/15/19 20:00 98.6 93 18 156/77 (103) 98 11/15/19 20:00 86 11/15/19 16:00 79 11/15/19 16:00 97.0 94 18 159/86 (110) 96 11/15/19 13:10 66 20 159/86 95 11/15/19 12:40 60 20 146/68 97 11/15/19 12:01 88 11/15/19 12:00 97.7 55 20 146/68 (94) 97 11/15/19 09:45 150/70 11/15/19 09:39 138/72 11/15/19 09:09 139/77 Intake and Output 11/15/19 11/16/19 19:00 07:00 Intake Total 360 ml 300 ml Output Total 550 ml 500 ml Balance -190 ml -200 ml Intake Oral 360 ml 300 ml Output Urine Total 550 ml 500 ml # Bowel Movements 1 1 Laboratory Tests 11/16/19 06:28: White Blood Count 6.6, Red Blood Count 3.99L, Hemoglobin 11.5L, Hematocrit 35.3L , Mean Corpuscular Volume 88, Mean Corpuscular Hemoglobin 28.8, Mean Corpuscular Hemoglobin Concent 32.6, Red Cell Distribution Width 18.0H, Platelet Count 96L, Mean Platelet Volume 8.3, Neutrophils (%) (Auto) , Lymphocytes (%) (Auto) , Monocytes (%) (Auto) , Eosinophils (%) (Auto) , Basophils (%) (Auto) , Elsy trophils % (Manual) [Pending], Lymphocytes % (Manual) [Pending], Platelet Estimate [Pending], Platelet Morphology [Pending], Sodium Level 137, Potassium Level 3.8, Chloride Level 104, Carbon Dioxide Level 24, Anion Gap 9, Blood Urea Nitrogen 10, Creatinine 1.0, Estimat Glomerular Filtration Rate > 60, Glucose Level 116H, Calcium Level 8.7, Total Bilirubin 1.6H, Direct Bilirubin 0.3, Aspartate Amino Transf (AST/SGOT) 47H, Alanine Aminotransferase (ALT/SGPT) 41, Alkaline Phosphatase 68, Troponin I 0.015, Total Protein 5.7L, Albumin 2.9L, Globulin 2.8, Albumin/Globulin Ratio 1.0 Height (Feet): 6 Height (Inches): 1.00 Weight (Pounds): 209 General Appearance: no apparent distress, alert EENT: PERRL/EOMI, normal ENT inspection Neck: non-tender, normal alignment Cardiovascular: normal rate, regular rhythm Respiratory/Chest: decreased breath sounds Abdomen: tender Extremities: non-tender Edema: trace edema Neurologic: alert Skin: warm/dry Assessment/Plan Assessment/Plan: (1) Chest pain (2) R/o ACS (3) Alcohol abuse and withdrawal Patient will be continued on Morphine and Ativan D/w Dr. Rivera and he concurred. Edwin Storey Nov 16, 2019 09:01
[2019-11-16] MEDS: BuPROPion XL 150mg tab ORAL SCH (10:00)
[2019-11-16] MEDS: Aspirin EC 81mg tab ORAL SCH ×2 (10:00→18:35)
--- NOTE | 2019-11-16 10:14 | Cardiac Electrophysiology PN ---
Assessment/Plan Assessment/Plan 1. Chest pain in a patient with history of coronary artery disease as well as history of stent at [facility]. The patient already ruled out for myocardial infarction. Awaiting records from [facility] to see if he truly had a stent as the information is not very reliable. I reviewed his records at [facility], his last admission was in 2017 but there was no history of prior stent at that time. In the meantime, keep the patient on aspirin, low dose beta-yulia, and statin. Stress test pending today 2. History of supraventricular tachycardia documented on the previous admission at [facility]. The patient reportedly underwent an ablation at [facility]. Again, we will try to get those records as well. 3. History of heavy alcohol use on lorazepam, Risperdal, and Wellbutrin. It is of note patient's urine toxicology screen on this admission was negative; however in 2017 was positive for cocaine and benzodiazepine. FARZANEH RN Subjective Subjective [facility] records and [facility] records from 2017 reviewed. Awaiting records from [facility] No CP. Stress test pending today Objective Last 24 Hour Vital Signs Date Time Temp Pulse Resp B/P (MAP) Pulse Ox O2 Delivery O2 Flow Rate FiO2 11/16/19 04:00 98.4 56 20 149/85 (106) 99 11/16/19 04:00 56 11/16/19 00:00 97.7 71 20 158/86 (110) 97 11/16/19 00:00 60 11/15/19 21:13 93 156/77 11/15/19 21:00 Room Air 11/15/19 20:00 98.6 93 18 156/77 (103) 98 11/15/19 20:00 86 11/15/19 16:00 79 11/15/19 16:00 97.0 94 18 159/86 (110) 96 11/15/19 13:10 66 20 159/86 95 11/15/19 12:40 60 20 146/68 97 11/15/19 12:01 88 11/15/19 12:00 97.7 55 20 146/68 (94) 97 Intake and Output 11/15/19 11/16/19 19:00 07:00 Intake Total 360 ml 300 ml Output Total 550 ml 500 ml Balance -190 ml -200 ml Intake Oral 360 ml 300 ml Output Urine Total 550 ml 500 ml # Bowel Movements 1 1 Laboratory Tests Test 11/16/19 06:28 White Blood Count 6.6 K/UL (4.8-10.8) Red Blood Count 3.99 M/UL (4.70-6.10) L Hemoglobin 11.5 G/DL (14.2-18.0) L Hematocrit 35.3 % (42.0-52.0) L Mean Corpuscular Volume 88 FL (80-99) Mean Corpuscular Hemoglobin 28.8 PG (27.0-31.0) Mean Corpuscular Hemoglobin Concent 32.6 G/DL (32.0-36.0) Red Cell Distribution Width 18.0 % (11.6-14.8) H Platelet Count 96 K/UL (150-450) L Mean Platelet Volume 8.3 FL (6.5-10.1) Neutrophils (%) (Auto) % (45.0-75.0) Lymphocytes (%) (Auto) % (20.0-45.0) Monocytes (%) (Auto) % (1.0-10.0) Eosinophils (%) (Auto) % (0.0-3.0) Basophils (%) (Auto) % (0.0-2.0) Differential Total Cells Counted 100 Neutrophils % (Manual) 71 % (45-75) Lymphocytes % (Manual) 22 % (20-45) Monocytes % (Manual) 6 % (1-10) Eosinophils % (Manual) 1 % (0-3) Basophils % (Manual) 0 % (0-2) Band Neutrophils 0 % (0-8) Platelet Estimate Decreased L Platelet Morphology Normal Hypochromasia 1+ Anisocytosis 1+ Sodium Level 137 MMOL/L (136-145) Potassium Level 3.8 MMOL/L (3.5-5.1) Chloride Level 104 MMOL/L (98-107) Carbon Dioxide Level 24 MMOL/L (21-32) Anion Gap 9 mmol/L (5-15) Blood Urea Nitrogen 10 mg/dL (7-18) Creatinine 1.0 MG/DL (0.55-1.30) Estimat Glomerular Filtration Rate > 60 mL/min (>60) Glucose Level 116 MG/DL (74-106) H Calcium Level 8.7 MG/DL (8.5-10.1) Total Bilirubin 1.6 MG/DL (0.2-1.0) H Direct Bilirubin 0.3 MG/DL (0.0-0.3) Aspartate Amino Transf (AST/SGOT) 47 U/L (15-37) H Alanine Aminotransferase (ALT/SGPT) 41 U/L (12-78) Alkaline Phosphatase 68 U/L (46-116) Troponin I 0.015 ng/mL (0.000-0.056) Total Protein 5.7 G/DL (6.4-8.2) L Albumin 2.9 G/DL (3.4-5.0) L Globulin 2.8 g/dL Albumin/Globulin Ratio 1.0 (1.0-2.7) Microbiology Date/Time Source Procedure Growth Status 11/15/19 00:00 Nasopharynx SARS-CoV-2 RdRp Gene Assay - Final Complete Objective HEAD AND NECK: Showed no JVD. LUNGS: Clear. CARDIOVASCULAR: Regular S1 and S2 with no gallop or murmur. ABDOMEN: Soft. EXTREMITIES: No pitting edema. Tom Singleton MD Nov 16, 2019 10:14
[2019-11-16 12:00] VITALS: BP 155/78
--- NOTE | 2019-11-16 13:55 | Cardiology Report ---
APPROVED REPORT EKG Measurement Heart [id number] <Conclusion> Normal sinus rhythm Normal ECG
[2019-11-16] MEDS ORDERED: ATORVASTATIN CA10 MG ORAL (15:00)
[2019-11-16] MEDS ORDERED: PROTONIX40 MG ORAL (15:00)
[2019-11-16] MEDS ORDERED: ASPIRIN81 MG ORAL (15:00)
[2019-11-16 16:00] VITALS: BP 132/70
--- NOTE | 2019-11-16 17:14 | Consultation ---
DATE OF CONSULTATION: 11/16/2019 CHIEF COMPLAINT: Abdominal pain, GERD. HISTORY OF PRESENT ILLNESS: This is a very pleasant 59-year-old male patient with past medical history of alcoholism, who was admitted to the hospital with complaint of chest pain. The patient has prior history of coronary artery disease, history of stent placement in the past, history of cardiac ablation. At this time denies any nausea, vomiting. Denies any dysphagia. Denies any melena. Denies any hematochezia. PAST MEDICAL HISTORY: Significant for: 1. History of coronary artery disease. 2. Cardiac ablation. 3. History of alcohol abuse. 4. Obesity. 5. History of SVT. ALLERGIES: No known drug allergies. MEDICATIONS: See medication reconciliation list. SOCIAL HISTORY: The patient currently drinks alcohol and smokes cigarettes. FAMILY HISTORY: Noncontributory. PAST SURGICAL HISTORY: Left knee surgery in 1989. PHYSICAL EXAMINATION: VITAL SIGNS: Temperature is 97.9, pulse is 68, respirations 18, blood pressure is 143/76. HEENT: Normocephalic, atraumatic. Sclerae anicteric. NECK: Supple. No lymphadenopathy. CARDIOVASCULAR: Regular rate and rhythm. Plus S1-S2. LUNGS: Decreased breath sounds bilaterally based on supine exam. ABDOMEN: Soft, nontender. No rebound. No guarding. No peritoneal sign. EXTREMITIES: No cyanosis. No clubbing. No edema. LABORATORY DATA: White count is 6.6, hemoglobin 11.4, hematocrit 35, platelet count is 96. ASSESSMENT AND PLAN: This is a 59-year-old alcoholic male admitted to the hospital complaining of chest pain, also complained of some acid reflux. The patient is having some mild anemia, normocytic anemia, evidence of thrombocytopenia. Plan will be to start the patient on PPI given chronic reflux symptoms. Do anemia workup. So far, stool OB has been negative x1. Start the patient on thiamine, folate, multivitamin. Order abdominal ultrasound to evaluate for cirrhosis given the alcoholism and evidence of thrombocytopenia. I want to thank Dr. Kvng Zuniga for this kind referral. Jeffrey Caldwell M.D. DR: RONI JOB#: [id number] CC: Kvng Zuniga M.D.; Fax#: [phone]
[2019-11-16] MEDS: Morphine Sulfate 2mg/ml Inj(IV/IM USE ONLY) IVP PRN (18:36)
[2019-11-16 20:00] VITALS: BP 130/74
--- NOTE | 2019-11-16 21:41 | General Progress Note ---
Subjective ROS Limited/Unobtainable: Yes Allergies: Coded Allergies: No Known Allergies (Unverified , 09/17/14) Objective Last 24 Hour Vital Signs Date Time Temp Pulse Resp B/P (MAP) Pulse Ox O2 Delivery O2 Flow Rate FiO2 11/16/19 21:09 75 130/74 11/16/19 20:00 98.1 75 18 130/74 (92) 98 11/16/19 16:00 98.4 63 18 132/70 (90) 96 11/16/19 15:10 68 11/16/19 12:01 59 11/16/19 12:00 98.1 73 20 155/78 (103) 97 11/16/19 09:00 Room Air 11/16/19 08:00 97.9 68 18 143/76 (98) 98 11/16/19 08:00 60 11/16/19 04:00 98.4 56 20 149/85 (106) 99 11/16/19 04:00 56 11/16/19 00:00 97.7 71 20 158/86 (110) 97 11/16/19 00:00 60 Intake and Output 11/15/19 11/16/19 19:00 07:00 Intake Total 360 ml 300 ml Output Total 550 ml 500 ml Balance -190 ml -200 ml Intake Oral 360 ml 300 ml Output Urine Total 550 ml 500 ml # Bowel Movements 1 1 Laboratory Tests 11/16/19 06:28: White Blood Count 6.6, Red Blood Count 3.99L, Hemoglobin 11.5L, Hematocrit 35.3L , Mean Corpuscular Volume 88, Mean Corpuscular Hemoglobin 28.8, Mean Corpuscular Hemoglobin Concent 32.6, Red Cell Distribution Width 18.0H, Platelet Count 96L, Mean Platelet Volume 8.3, Neutrophils (%) (Auto) , Lymphocytes (%) (Auto) , Monocytes (%) (Auto) , Eosinophils (%) (Auto) , Basophils (%) (Auto) , Differential Total Cells Counted 100, Neutrophils % (Manual) 71, Lymphocytes % (Manual) 22, Monocytes % (Manual) 6, Eosinophils % (Manual) 1, Basophils % (Manual) 0, Band Neutrophils 0, Platelet Estimate DecreasedL, Platelet Morphology Normal, Hypochromasia 1+, Anisocytosis 1+, Sodium Level 137, Potassium Level 3.8, Chloride Level 104, Carbon Dioxide Level 24, Anion Gap 9, Blood Urea Nitrogen 10, Creatinine 1.0, Estimat Glomerular Filtration Rate > 60, Glucose Level 116H, Calcium Level 8.7, Total Bilirubin 1.6H, Direct Bilirubin 0.3, Aspartate Amino Transf (AST/SGOT) 47H, Alanine Aminotransferase (ALT/SGPT) 41, Alkaline Phosphatase 68, Troponin I 0.015, Total Protein 5.7L, Albumin 2.9L, Globulin 2.8, Albumin/Globulin Ratio 1.0 Height (Feet): 6 Height (Inches): 1.00 Weight (Pounds): 209 Assessment/Plan Problem List: (1) Diabetes mellitus ICD Codes: E11.9 - Type 2 diabetes mellitus without complications SNOMED: 21173848 (2) HTN (hypertension) ICD Codes: I10 - Essential (primary) hypertension SNOMED: 36443958 (3) Chest pain ICD Codes: R07.9 - Chest pain, unspecified SNOMED: 27991558 (4) CAD (coronary artery disease) ICD Codes: I25.10 - Atherosclerotic heart disease of [place] coronary artery without angina pectoris SNOMED: 86735892 Status: progressing Assessment/Plan: afebrile nac cp r/o acs needs pt/ot weak covid negative no respiratory symptoms Kvng Zuniga MD Nov 16, 2019 21:41
[2019-11-17] VITALS: BP 128/76
[2019-11-17 04:00] VITALS: BP 112/73
[2019-11-17 07:07] LABS: % IRON SATURATION 22 % (15-50); IRON 43 ug/dL (50-175); TOTAL IRON BINDING CAPACITY 195 ug/dL (250-450)
[2019-11-17 08:00] VITALS: BP 125/86
--- NOTE | 2019-11-17 08:53 | General Progress Note ---
Subjective Date patient seen: Nov 17, 2019 Time patient seen: 07:15 - am Constitutional: Reports: no symptoms HEENT: Reports: no symptoms Cardiovascular: Reports: no symptoms Respiratory: Reports: no symptoms Gastrointestinal/Abdominal: Reports: no symptoms Genitourinary: Reports: no symptoms Neurologic/Psychiatric: Reports: no symptoms Endocrine: Reports: no symptoms Hematologic/Lymphatic: Reports: no symptoms Allergies: Coded Allergies: No Known Allergies (Unverified , 09/17/14) Subjective Patient resting in bed, used one morphine in the last 24hrs. Ativan was changed to tablet. No new complaints at this time. Objective Last 24 Hour Vital Signs Date Time Temp Pulse Resp B/P (MAP) Pulse Ox O2 Delivery O2 Flow Rate FiO2 11/17/19 04:00 57 11/17/19 04:00 98.9 57 18 112/73 (86) 98 11/17/19 00:00 62 11/17/19 00:00 98.4 62 18 128/76 (93) 98 11/16/19 21:09 75 130/74 11/16/19 21:00 Room Air 11/16/19 20:00 69 11/16/19 20:00 98.1 75 18 130/74 (92) 98 11/16/19 16:00 98.4 63 18 132/70 (90) 96 11/16/19 15:10 68 11/16/19 12:01 59 11/16/19 12:00 98.1 73 20 155/78 (103) 97 11/16/19 09:00 Room Air Intake and Output 11/16/19 11/17/19 19:00 07:00 Intake Total 360 ml 500 ml Output Total 500 ml Balance -140 ml 500 ml Intake Oral 360 ml 500 ml Output Urine Total 500 ml # Bowel Movements 1 1 Laboratory Tests 11/17/19 06:20: Iron Level 43L, Total Iron Binding Capacity 195L, Percent Iron Saturation 22, Unsaturated Iron Binding 152 Height (Feet): 6 Height (Inches): 1.00 Weight (Pounds): 209 General Appearance: no apparent distress, alert EENT: PERRL/EOMI, normal ENT inspection Neck: non-tender, normal alignment Cardiovascular: normal rate, regular rhythm Respiratory/Chest: decreased breath sounds Abdomen: soft Extremities: non-tender Edema: trace edema Neurologic: alert, oriented x 3 Skin: warm/dry Assessment/Plan Assessment/Plan: (1) Chest pain (2) R/o ACS (3) Alcohol abuse and withdrawal Patient will be continued on Ativan, we will discontinue the morphine and start Tramadol 50mg PO 1 tab Q4H PRN severe pain D/w Dr. Rivera and he concurred. Edwin Storey Nov 17, 2019 08:53
[2019-11-17] MEDS ORDERED: traMADol 50mg tab ORAL PRN (09:15)
--- NOTE | 2019-11-17 09:29 | Cardiology Report ---
APPROVED REPORT EXAM: Two-dimensional and M-mode echocardiogram with Doppler and color Doppler. INDICATION Chest Pain M-Mode DIMENSIONS IVSd0.9 (0.7-1.1cm)Left Atrium (MM)2.9 (1.6-4.0cm) LVDd4.6 (3.5-5.6cm)Aortic Root3.5 (2.0-3.7cm) PWd1.0 (0.7-1.1cm)Aortic Cusp Exc.2.6 (1.5-2.0cm) IVSs1.9 cmEPSS0.6 (>1.0cm) LVDs2.6 (2.5-4.0cm) PWs2.0 cm <Conclusion> Normal left ventricular chamber size, systolic function and wall motion. Left ventricular ejection fraction estimated to be 60-65%. No evidence of left ventricular hypertrophy. No evidence of pericardial effusion. All other cardiac chamber sizes are within normal limits. Focal aortic valve sclerosis with adequate cusp excursion. Thickened mitral valve leaflets with normal excursion. Mitral annulus and aortic root calcification. Normal pulmonic valve structure. Normal tricuspid valve structure. IVC at normal size and collapsing with respiration. A color flow and spectral Doppler study was performed and revealed: Trace aortic regurgitation. Trace mitral regurgitation. Mitral diastolic velocities suggest reduced left ventricular relaxation c/w mild diastolic dysfunction (Grade I). Trace to mild tricuspid regurgitation. Tricuspid systolic velocities suggests peak right ventricular systolic pressure of 21 mmHg. No pulmonic regurgitation present.
[2019-11-17] MEDS: Thiamine 100mg tab ORAL SCH (09:33)
[2019-11-17] MEDS: Metoprolol Tartrate 50mg tab ORAL SCH ×2 (09:33→21:01)
[2019-11-17] MEDS: Aspirin EC 81mg tab ORAL SCH (09:33)
[2019-11-17] MEDS: BuPROPion XL 150mg tab ORAL SCH (09:34)
--- NOTE | 2019-11-17 11:30 | Cardiac Electrophysiology PN ---
Assessment/Plan Assessment/Plan 1. Chest pain in a patient with history of stent at [facility]. The patient already ruled out for myocardial infarction. Awaiting records from [facility] to see if he truly had a stent as the information is not very reliable. I reviewed his records at [facility], his last admission was in 2017 but there was no history of prior stent at that time. In the meantime, keep the patient on aspirin, low dose beta-yulia, and statin. Stress test done yesterday. Nuclear report pending today 2. History of supraventricular tachycardia documented on the previous admission at [facility]. The patient reportedly underwent an ablation at [facility]. Awaiting records 3. History of heavy alcohol use on lorazepam, Risperdal, and Wellbutrin. It is of note patient's urine toxicology screen on this admission was negative; however in 2017 was positive for cocaine and benzodiazepine. FARZANEH RN Subjective Subjective [facility] records and [facility] records from 2017 reviewed. Still awaiting records from [facility] No CP. Stress test done yesterday but nuclear report still not available Objective Last 24 Hour Vital Signs Date Time Temp Pulse Resp B/P (MAP) Pulse Ox O2 Delivery O2 Flow Rate FiO2 11/17/19 09:33 86 125/86 11/17/19 08:00 66 11/17/19 08:00 98.1 86 20 125/86 (99) 97 11/17/19 04:00 57 11/17/19 04:00 98.9 57 18 112/73 (86) 98 11/17/19 00:00 62 11/17/19 00:00 98.4 62 18 128/76 (93) 98 11/16/19 21:09 75 130/74 11/16/19 21:00 Room Air 11/16/19 20:00 69 11/16/19 20:00 98.1 75 18 130/74 (92) 98 11/16/19 16:00 98.4 63 18 132/70 (90) 96 11/16/19 15:10 68 11/16/19 12:01 59 11/16/19 12:00 98.1 73 20 155/78 (103) 97 Intake and Output 11/16/19 11/17/19 19:00 07:00 Intake Total 360 ml 500 ml Output Total 500 ml Balance -140 ml 500 ml Intake Oral 360 ml 500 ml Output Urine Total 500 ml # Bowel Movements 1 1 Laboratory Tests Test 11/17/19 06:20 Iron Level 43 ug/dL (50-175) L Total Iron Binding Capacity 195 ug/dL (250-450) L Percent Iron Saturation 22 % (15-50) Unsaturated Iron Binding 152 ug/dL (112-346) Microbiology Date/Time Source Procedure Growth Status 11/15/19 00:00 Nasopharynx SARS-CoV-2 RdRp Gene Assay - Final Complete Objective HEAD AND NECK: Showed no JVD. LUNGS: Clear. CARDIOVASCULAR: Regular S1 and S2 with no gallop or murmur. ABDOMEN: Soft. EXTREMITIES: No pitting edema. Tom Singleton MD Nov 17, 2019 11:30
[2019-11-17 12:00] VITALS: BP 130/74
--- NOTE | 2019-11-17 12:29 | Diagnostic Imaging Report ---
Indications: Chest pain Technique: Single day single isotope protocol utilized. Initially, resting images obtained using IV administration 10 point millicuries 99M technetium Myoview. Subsequently, patient underwent lexiscan stress testing. See cardiology report for details. During Lexiscan infusion, IV administration 31.8 mCi 99 M technetium Myoview. SPECT and planar images obtained. SPECT images gated to 8 phases of the cardiac cycle were also obtained, and reformatted into cine images for evaluation of ejection fraction. Comparison: none Findings: Per cardiology report, patient experienced no symptoms. Per cardiology report, resting EKG demonstrates normal sinus rhythm. No ST changes reported during infusion. Imaging demonstrates normal poststress perfusion. No fixed nor reversible post stress perfusion defects. Normal left ventricular chamber size.. Calculated post stress ejection fraction 62%. No focal wall motion abnormality demonstrated Impression: Nonischemic clinical response to pharmacologic stress, per cardiology report Nonischemic electrocardiographic response to pharmacologic stress, per cardiology report No imaging findings to suggest ischemia, at level of stress achieved. Calculated post stress ejection fraction 62%
--- NOTE | 2019-11-17 12:48 | Diagnostic Imaging Report ---
Indication: Abdominal pain Technique: Lopez-scale and duplex images of the upper abdomen were obtained Comparison: none Findings: Gallbladder is unremarkable, without stones, wall thickening, nor pericholecystic fluid. Sonographic Diaz's sign is negative. Common bile duct measures 3 mm in diameter. No intrahepatic biliary ductal dilatation. Liver is unremarkable. Normal vascular flow Portal vein and hepatic veins are patent. Pancreas is unremarkable. The spleen could not be visualized Left kidney measures 9.9 cm in length. Right kidney measures 10 point cm length. Both kidneys demonstrate normal echogenicity. There is no hydronephrosis. No focal abnormality . Non-aneurysmal abdominal aorta . Impression: Essentially unremarkable exam Note nonvisualization of the spleen
--- NOTE | 2019-11-17 13:29 | General Progress Note ---
Subjective ROS Limited/Unobtainable: Yes Allergies: Coded Allergies: No Known Allergies (Unverified , 09/17/14) Objective Last 24 Hour Vital Signs Date Time Temp Pulse Resp B/P (MAP) Pulse Ox O2 Delivery O2 Flow Rate FiO2 11/17/19 09:33 86 125/86 11/17/19 08:00 66 11/17/19 08:00 98.1 86 20 125/86 (99) 97 11/17/19 04:00 57 11/17/19 04:00 98.9 57 18 112/73 (86) 98 11/17/19 00:00 62 11/17/19 00:00 98.4 62 18 128/76 (93) 98 11/16/19 21:09 75 130/74 11/16/19 21:00 Room Air 11/16/19 20:00 69 11/16/19 20:00 98.1 75 18 130/74 (92) 98 11/16/19 16:00 98.4 63 18 132/70 (90) 96 11/16/19 15:10 68 Intake and Output 11/16/19 11/17/19 19:00 07:00 Intake Total 360 ml 500 ml Output Total 500 ml Balance -140 ml 500 ml Intake Oral 360 ml 500 ml Output Urine Total 500 ml # Bowel Movements 1 1 Laboratory Tests 11/17/19 06:20: Iron Level 43L, Total Iron Binding Capacity 195L, Percent Iron Saturation 22, Unsaturated Iron Binding 152 Height (Feet): 6 Height (Inches): 1.00 Weight (Pounds): 209 General Appearance: no apparent distress EENT: normal ENT inspection Neck: supple Cardiovascular: normal rate Respiratory/Chest: decreased breath sounds Abdomen: normal bowel sounds, non tender, soft Extremities: non-tender Assessment/Plan Assessment/Plan: 1. History of coronary artery disease. 2. Cardiac ablation. 3. History of alcohol abuse. 4. Obesity. 5. History of SVT. stable H&H us reviewed thiamine/folate/MVI fu labs fu cardiology recs Jeffrey Caldwell MD Nov 17, 2019 13:29
--- NOTE | 2019-11-17 14:40 | Cardiology Report ---
ADDENDUM APPROVED REPORT EKG Measurement Heart [id number] <Conclusion> Atrial rhythm NS ST-T changes Abnormal ECG
--- NOTE | 2019-11-17 14:47 | Cardiology Report ---
APPROVED REPORT EKG Measurement Heart [id number] <Conclusion> Sinus rhythm with premature supraventricular complexes Nonspecific ST and T wave abnormality Abnormal ECG
[2019-11-17 16:00] VITALS: BP 129/85
[2019-11-17 20:00] VITALS: BP 135/74
--- NOTE | 2019-11-17 21:45 | General Progress Note ---
Subjective ROS Limited/Unobtainable: Yes Respiratory: Reports: no symptoms Allergies: Coded Allergies: No Known Allergies (Unverified , 09/17/14) Objective Last 24 Hour Vital Signs Date Time Temp Pulse Resp B/P (MAP) Pulse Ox O2 Delivery O2 Flow Rate FiO2 11/17/19 21:03 74 18 155/89 100 11/17/19 21:01 79 155/89 11/17/19 20:00 98.1 71 18 135/74 (94) 100 11/17/19 16:00 98.3 81 20 129/85 (100) 97 11/17/19 16:00 70 11/17/19 12:00 90 11/17/19 12:00 98.0 85 20 130/74 (92) 97 11/17/19 09:33 86 125/86 11/17/19 09:00 Room Air 11/17/19 08:00 66 11/17/19 08:00 98.1 86 20 125/86 (99) 97 11/17/19 04:00 57 11/17/19 04:00 98.9 57 18 112/73 (86) 98 11/17/19 00:00 62 11/17/19 00:00 98.4 62 18 128/76 (93) 98 Intake and Output 11/16/19 11/17/19 19:00 07:00 Intake Total 360 ml 500 ml Output Total 500 ml Balance -140 ml 500 ml Intake Oral 360 ml 500 ml Output Urine Total 500 ml # Bowel Movements 1 1 Laboratory Tests 11/17/19 06:20: Iron Level 43L, Total Iron Binding Capacity 195L, Percent Iron Saturation 22, Unsaturated Iron Binding 152 Height (Feet): 6 Height (Inches): 1.00 Weight (Pounds): 209 Assessment/Plan Problem List: (1) Diabetes mellitus ICD Codes: E11.9 - Type 2 diabetes mellitus without complications SNOMED: 06964302 (2) HTN (hypertension) ICD Codes: I10 - Essential (primary) hypertension SNOMED: 97372045 (3) Chest pain ICD Codes: R07.9 - Chest pain, unspecified SNOMED: 89462064 (4) CAD (coronary artery disease) ICD Codes: I25.10 - Atherosclerotic heart disease of [place] coronary artery without angina pectoris SNOMED: 65054231 Status: progressing Assessment/Plan: afebrile no acute events cp r/o acs needs pt/ot weak covid negative no respiratory symptoms Kvng Zuniga MD Nov 17, 2019 21:44
--- NOTE | 2019-11-17 23:51 | Psych Consult Progress Note ---
Psychiatry Progress Note Psychiatry Progress Note Medications Current Medications Medications (Trade) Dose Ordered Sig/Liliya Route PRN Reason Start Time Stop Time Status Last Admin Dose Admin Acetaminophen (Tylenol) 650 mg Q4H PRN ORAL Mild Pain (Pain Scale 1-3) 11/15/19 05:00 12/15/19 04:59 Aspirin (Ecotrin) 81 mg DAILY ORAL 11/16/19 09:00 12/31/19 08:59 11/17/19 09:33 Atorvastatin Calcium (Lipitor) 10 mg BEDTIME ORAL 11/15/19 21:00 02/13/20 20:59 11/17/19 21:00 Bupropion HCl (Wellbutrin XL) 150 mg DAILY ORAL 11/15/19 09:00 12/15/19 08:59 11/17/19 09:34 Folic Acid (Folate) 1 mg DAILY ORAL 11/17/19 09:00 12/17/19 08:59 11/17/19 09:32 Ibuprofen (Motrin) 600 mg Q8H PRN ORAL For Pain 11/15/19 05:15 12/15/19 05:14 Lorazepam (Ativan) 2 mg Q4H PRN ORAL For Anxiety 11/15/19 23:30 11/22/19 23:29 11/17/19 21:03 Metoprolol Tartrate (Lopressor) 50 mg Q12HR ORAL 11/15/19 21:00 02/13/20 20:59 11/17/19 21:01 Multivitamins (Multivitamins) 1 tab DAILY ORAL 11/17/19 09:00 12/17/19 08:59 11/17/19 09:34 Nitroglycerin (Ntg) 0.4 mg Q5M PRN SL Prn Chest Pain 11/15/19 08:30 12/15/19 08:29 11/15/19 09:45 Ondansetron HCl (Zofran) 4 mg Q6H PRN IVP Nausea & Vomiting 11/15/19 09:00 12/15/19 08:59 11/16/19 10:00 Pantoprazole (Protonix) 40 mg DAILY ORAL 11/17/19 09:00 12/17/19 08:59 11/17/19 09:33 Risperidone (RisperDAL) 2 mg DAILY ORAL 11/15/19 09:00 12/30/19 08:59 11/17/19 09:32 Thiamine HCl (Vitamin B1) 100 mg DAILY ORAL 11/17/19 09:00 12/17/19 08:59 11/17/19 09:33 Tramadol HCl (Ultram) 50 mg Q4H PRN ORAL Severe Pain (Pain Scale 7-10) 11/17/19 09:15 11/24/19 09:14 Neurological/Psychiatric: Reports: anxiety, depressed, emotional problems Allergies: Coded Allergies: No Known Allergies (Unverified , 09/17/14) Objective Data Height (Feet): 6 Height (Inches): 1.00 Weight (Pounds): 209 General Appearance: no apparent distress Additional Comments: Alert and oriented to times self, place and situation. Mood is neutral. Affect is full range. Congruent mood. Thought process is linear and goal oriented. Thought content, no suicidal or homicidal ideation. Assessment/Plan Status: stable, progressing Assessment/Plan: ASSESSMENT: [place] I Major depressive disorder. Psychotic disorder. [place] II Deferred. [place] III None. [place] IV Low. [place] V 50 PLAN: 1. Wellbutrin. 2. Lorazepam p.r.n. 3. Risperidone at bedtime. 4. The patient is not an imminent danger to self or others. Paige Simpson MD Nov 17, 2019 23:51
[2019-11-18] VITALS: BP 145/87
[2019-11-18 04:00] VITALS: BP 129/72
[2019-11-18 08:05] VITALS: BP 121/74
[2019-11-18] MEDS: BuPROPion XL 150mg tab ORAL SCH (08:21)
[2019-11-18] MEDS: Aspirin EC 81mg tab ORAL SCH (08:21)
[2019-11-18] MEDS: Thiamine 100mg tab ORAL SCH (08:22)
[2019-11-18] MEDS: Metoprolol Tartrate 50mg tab ORAL SCH (08:22)
[2019-11-18] MEDS ORDERED: ACETAMINOPHEN325 M1 ORAL (08:34)
[2019-11-18] MEDS ORDERED: ATORVASTATIN CA10 MG ORAL (08:35)
[2019-11-18] MEDS ORDERED: BUPROPION XL150 MG ORAL (08:35)
[2019-11-18] MEDS ORDERED: FOLIC ACID1 MG ORAL (08:39)
[2019-11-18] MEDS ORDERED: IBUPROFEN600 M1 ORAL (08:42)
[2019-11-18] MEDS ORDERED: ATIVAN2 MG ORAL (08:44)
[2019-11-18] MEDS ORDERED: METOPROLOL TART50 M1 ORAL (08:45)
[2019-11-18] MEDS ORDERED: NITRO0.4 SL (08:46)
[2019-11-18] MEDS ORDERED: ZOFRAN4 M3 ORAL (08:46)
[2019-11-18] MEDS ORDERED: RISPERDAL2 MG ORAL (08:47)
[2019-11-18] MEDS ORDERED: VITAMIN B-1100 M2 PO (08:48)
--- NOTE | 2019-11-18 09:43 | Consultation ---
Consult Note Consult Note I am consulted by Bnig on this patient. Patient interviewed, chart reviewed. No urine analysis and no new labs available. UA and chemistry panel ordered. Full note to follow after results available. Buck Parra MD Nov 18, 2019 09:43
--- NOTE | 2019-11-18 19:30 | History and Physical Report ---
DATE OF ADMISSION: 11/15/2019 HISTORY OF PRESENT ILLNESS: This is a 59-year-old male with a history of anxiety, psychotic disorder, diabetes, CAD, back pain, alcohol abuse, as well as hernia, who was admitted to the hospital for medical stabilization. The patient complained of chest pain. He denied any suicidal or homicidal ideation. He has anxiety. The patient was given benzodiazepine in the hospital. He is not endorsing any suicidal or homicidal ideation. PAST PSYCHIATRIC HISTORY: Anxiety and psychotic disorder. PAST MEDICAL HISTORY: As above. ALLERGIES: No known drug allergies. SUBSTANCE ABUSE HISTORY: Significant for alcohol abuse and drug use. MENTAL STATUS EXAMINATION: Alert and oriented to times self, place and situation. Mood is neutral. Affect is full range. Congruent mood. Thought process is linear and goal oriented. Thought content, no suicidal or homicidal ideation. ASSESSMENT: Heavener I Major depressive disorder. Psychotic disorder. Heavener II Deferred. Heavener III None. Heavener IV Low. Heavener V 50 PLAN: 1. Wellbutrin. 2. Lorazepam p.r.n. 3. Risperidone at bedtime. 4. The patient is not an imminent danger to self or others. Paige Simpson M.D. DR: Yoanna JOB#: [id number] CC:
--- NOTE | 2019-11-20 07:30 | CDS Physician Query ---
Clarification is required for compliance, coding accuracy, and to reflect severity of illness for this patient Dear Dr. Kvng Emery MD Date: 11/20/19 CDI/CDS: Lincolnyvan Lorenzo "59-year-old male with a history of anxiety, psychotic disorder, diabetes, CAD, back pain, alcohol abuse, as well as hernia, who was admitted to the hospital for medical stabilization. The patient complained of chest pain. ASSESSMENT Chest pain, rule out acute coronary syndrome, coronary artery disease. The patient is a high risk, has a coronary stent [H&P Kvng Zuniga M.D. 11/14] Clinical Finding Show: Vital sighs (11/13):T 98.85F, Pulse 93, RR 16, BP 155/85 Lab (11/13): Hemat; WBC 5.8, Chem; Potassium 3.4, Gluc 124, AST45, Troponin I 0.013/0.022 Medications: Nitroglycerin, Risperidone, Tramadol Please document the suspected etiology of Chest Pain: [] Aortic dissection [] Acute myocardial infarction [] Acute Coronary Syndrome [] Pericarditis [] Anxiety [] Cancer [] Pneumonia [] Costochondritis [] Pneumothorax [] GERD/Esophagitis [] Pulmonary embolism [] Other: [] Unable to determine Present on Admission: [] Yes [] No [] Clinically Undetermined Physician signature Date Please also document in your Progress Notes and/or Discharge Summary and indicate if the condition was present on admission. JOSÉ
--- NOTE | 2019-11-20 07:40 | CDS Physician Query ---
Clarification is required for compliance, coding accuracy, and to reflect severity of illness for this patient. Dear Dr. Kvng Emery MD Date: 11/20/19 CDI/CDS: Lincoln Lorenzo " 59-year-old gentleman with history of alcohol abuse, obesity, and history of recurrent SVT since 2017 Patient reports drinking a lot of beer and is having N/V. He was intoxicated on arrival, was not able to provide any information. " ASSESSMENT Chest pain, rule out acute coronary syndrome, coronary artery disease. The patient is a high risk, has a coronary stent [H&P Kvng Zuniga M.D. 11/14] Clinical Finding Show: Vital sighs (11/13):T 98.85F, Pulse 93, RR 16, BP 155/85 Lab (11/13): Hemat; WBC 5.8, Chem; Potassium 3.4, Gluc 124, AST45, Troponin I 0.013/0.022 Toxicology: Serum Alcohol 242 mg/dl Medications: Nitroglycerin, Risperidone, Tramadol Please Clarify the diagnosis associated with this finding: Diagnosis: Present on Admission: [] Yes [] No [] Clinically Undetermined Physician signature Date Please also document in your Progress Notes and/or Discharge Summary and indicate if the condition was present on admission. MTDD
--- NOTE | 2019-11-20 11:03 | Discharge Summary ---
Discharge Summary Discharge Summary _ DATE OF ADMISSION: 11/15/2019 DATE OF DISCHARGE: 11/18/2019 DISCHARGED BY: Dr. Zuniga REASON FOR ADMISSION: 59 years old male with past medical history of diabetes mellitus, hypertension, coronary artery disease, history of stent , psychiatric history, was brought by paramedics from [place] , complaining of the chest pain for 1 day. Patient was intoxicated on arrival. Vital signs were stable. Laboratory work-up revealed no leukocytosis, hemoglobin 12.8, hematocrit 40.2. Potassium 3.4. BUN 16, creatinine 1.3. Glucose 124. AST 45 , ALT 37. Troponin 0 0.013, EKG revealed sinus rhythm , no acute ischemic changes. Serum alcohol level 242. Urine toxicology screen negative . Chest x-ray revealed no acute cardiopulmonary pathology. In emergency department patient received 1 L of fluids, thiamine, nitroglycerin , antiemetic and admitted for further management. CONSULTANTS: chimney construction supervisor Dr. Medel GI specialist Dr. Caldwell remote recruiter Dr. Parra psychiatrist pain specialist HOSPITAL COURSE: Patient admitted to telemetry floor. Serial troponin were negative. EKG revealed no acute ischemic changes. Patient was ruled out for acute myocardial infarction. Echocardiogram demonstrated preserved ejection fraction of 60 to 65%. No evidence of left ventricular hypertrophy. No evidence of wall motion abnormality. No evidence of pericardial effusion. Patient subsequently undergone myocardial perfusion scan test , which revealed no imaging findings to suggest ischemia at level of stress achieved. Calculated poststress ejection fraction 62%. Patient reported that he had stent at [facility]. Information from [facility] was requested by chimney construction supervisor. [employer] Yarn Sorter also reviewed records at [facility] , but there was no history of prior stent at that time. Patient was kept on antiplatelet therapy with aspirin, low-dose beta-yulia and statin. Patient had a history of supraventricular tachycardia , documented on previous admission and subsequently reported ablation at [facility]. Per review of records, urine toxicology screen in 2017 was positive for cocaine and benzodiazepine, but at this time was negative . Patient was on thiamine and folic acid. Patient was monitored for withdrawal. Fall precautions maintained, patient was working with physical therapist. Renal parameters and electrolytes were closely monitored, electrolytes corrected as needed , and nephrotoxic's were avoided. Creatinine remained stable. Potassium 3.8 prior to discharge. Patient had mild anemia. Anemia work-up revealed evidence of anemia of chronic disease. Hemoglobin and hematocrit were closely monitored with goal to keep hemoglobin above 7; prior to discharge hemoglobin 11.5, hematocrit 35.3. Blood sugar was closely monitored and remained stable. Blood pressure remained stable with current med regimen. Psychiatrist followed. Psychiatric medication regimen optimized as per psychiatrist. Patient was counseled on abstinence from EtOH and illicit drug use. Placement was found and secured at [facility]. Patient was stable for transfer. FINAL DIAGNOSES: Alcohol abuse Chest pain in patient with a history of stent History of supraventricular tachycardia , s/p ablation Prior history of cocaine abuse (2017) Anemia DM HTN CAD Major depressive disorder Psychotic disorder DISCHARGE MEDICATIONS: See Medication Reconciliation list. DISCHARGE INSTRUCTIONS: Patient was discharged to the senior care facility. Follow up with medical doctor at the facility. I have been assigned to dictate discharge summary for this account. I was not involved in the patient's management. Kiki Crockett NP Nov 20, 2019 11:03
== END 2019-11-18 11:11 | DRG 313 ==
LOC: EDBD 19:36 → EMR 20:01 → 2E 11-15 01:23 → EDBEDREQ 11-15 03:30 → 4E 11-17 20:39
DX: R07.9 Chest pain, unspecified (principal); D69.6 Thrombocytopenia, unspecified; D64.9 Anemia, unspecified; E11.9 Type 2 diabetes mellitus without complications; F32.9 Major depressive disorder, single episode, unspecified; E66.9 Obesity, unspecified; Z68.27 Body mass index [BMI] 27.0-27.9, adult; K21.9 Gastro-esophageal reflux disease without esophagitis; F10.229 Alcohol dependence with intoxication, unspecified; Y90.8 Blood alcohol level of 240 mg/100 ml or more; Z87.891 Personal history of nicotine dependence; I25.10 Atherosclerotic heart disease of native coronary artery without angina pectoris; Z95.5 Presence of coronary angioplasty implant and graft; F29 Unspecified psychosis not due to a substance or known physiological condition; F14.11 Cocaine abuse, in remission; M54.9 Dorsalgia, unspecified
CPT/HCPCS: 36415; 71045; 76700; 78452; 80053; 80307; 82248; 83540; 83550; 84484; 85007; 85025; 93005; 93017; 93306; 96361; 96374; 96375; 99285; G0480; J2405; J2785; J7030; U0002